=== PATIENT | female | born 1950 | race Two or more races ===

== ENCOUNTER 2017-01-08 15:34 | Inpatient (IN) | payer MEDICARE, MEDICAID ==
[~2017-01-08] VITALS: Ht 144.8 cm; Wt 89.6 kg
[2017-01-08 11:00] VITALS: BP 145/84
[~2017-01-08 15:34] MED LIST: ALOG25TA OR; ALPR-229 PO; DEXL60CA3 PO; ERGO1CAP6 PO; INSUINJ37 SUBCUT; LEVO150T10 PO; METO25TA3 PO; POLYSOL5 EACHEYE; TEMA30CA PO
[2017-01-08] MEDS ORDERED: SODIUM CHLORIDE 0.9% 1,000 ML IV ONE (20:00)
[2017-01-08 20:39] LABS: Basophils # (auto) 0 uL; Basophils % (auto) 0.4 % (0.0-2.0); Eosinophils # (auto) 0.1 uL; Eosinophils % (auto) 0.7 % (0.0-7.0); Hematocrit 35.3 % (36.0-46.0); Hemoglobin 11.2 g/dL (12.2-16.2); Lymphocytes # (auto) 2.1 uL; Lymphocytes % (auto) 23.3 % (10.0-50.0); Mean Corpuscular Hemoglobin 27.1 pg (28.0-32.0); Mean Corpuscular Hgb Conc. 31.8 g/dL (32.0-36.0); Mean Platelet Volume 8.1 fL (7.4-10.4); Monocytes # (auto) 0.4 uL; Monocytes % (auto) 4.9 % (0.0-12.0); Neutrophils # (auto) 6.3 uL; Neutrophils % (auto) 70.7 % (37.0-80.0); Platelet Count (auto) 344 10^3/uL (140-450); Red Cell Distribution Width 16.7 % (11.6-16.0); White Blood Cell 8.9 10^3/uL (4.4-10.8)
[2017-01-08 20:40] LABS: Urine Bilirubin Negative (Negative); Urine Blood Negative /uL (Negative); Urine Color Yellow (Yellow); Urine Glucose Normal (Normal); Urine Ketone Negative (Negative); Urine Nitrite POSITIVE (Negative); Urine RBC <1 /hpf (0 - 4); Urine Squamous Epithelial Cell FEW /hpf (<5); Urine Urobilinogen Normal (Negative); Urine pH 5.5 (5.0-8.0)
[2017-01-08 20:45] LABS: INR 0.94 (0.9-1.15); Partial Thromboplastin Time 18.3 sec (22.64-33.71); Prothrombin Time 10.1 sec (9.37-12.3)
[2017-01-08 20:56] LABS: Albumin 3.1 g/dL (3.4-5.0); Anion Gap 9 (5-15); Aspartate Aminotransferase 19 U/L (15-37); BUN/Creatinine Ratio 19.8; Blood Urea Nitrogen 17 mg/dL (7-18); Calcium 8.3 mg/dL (8.5-10.1); Carbon Dioxide 25 mmol/L (21-32); Chloride 111 mmol/L (98-107); GFR African American 85 mL/min; GFR Non-African American 70 mL/min; Glucose 99 mg/dL (74-106); Magnesium 2.1 mg/dL (1.6-2.6); Potassium 4.1 mmol/L (3.5-5.1); Sodium 145 mmol/L (136-145)
[2017-01-08 21:01] LABS: Alkaline Phosphatase 125 U/L (45-117); Bilirubin, Total 0.4 mg/dL (0.2-1.0); Total Protein 6.7 g/dL (6.4-8.2)
[2017-01-08] MEDS ORDERED: MORPHINE SULF INJ 2 MG/ML SYRINGE 1ML IV ONE (21:15)
[2017-01-08] MEDS ORDERED: ONDANSETRON HCL 4 MG/2 ML VIAL IV ONE (21:30)
[2017-01-08] MEDS ORDERED: TEMAZEPAM 15 MG CAP PO PRN (22:15)
[2017-01-08] MEDS ORDERED: DEXTROSE (50%) 50ML SYRG IV PRN (22:15)
[2017-01-08] MEDS ORDERED: ACETAMINOPHEN 325 MG TAB PO PRN (22:15)
[2017-01-08] MEDS ORDERED: HYDROcodone-ACET 5/325MG TAB PO PRN (22:15)
[2017-01-08] MEDS ORDERED: cefTRIAXone 1GM/50ML D5W 50 ML IV ONE (22:15)
[2017-01-08] MEDS: METOPROLOL TARTRATE 25 MG TAB PO SCH (22:21)
[2017-01-08] MEDS: SODIUM CHLORIDE 0.9% 1,000 ML IV SCH (22:22)
[2017-01-08] MEDS: FAMOTIDINE 20 MG TAB PO SCH (22:32)
[2017-01-08 23:00] VITALS: BP 145/84
[2017-01-09] MEDS: InsuLIN REG 1unit/0.01ml Soln (100units/ml) SC SCH ×4 (00:34→18:00)
[2017-01-09] MEDS: ONDANSETRON HCL 4 MG/2 ML VIAL IV PRN ×2 (01:34→06:38)
[2017-01-09] MEDS: MORPHINE SULF INJ 2 MG/ML SYRINGE 1ML IV PRN ×2 (01:35→06:38)
[2017-01-09 04:58] VITALS: BP 126/55
[2017-01-09] MEDS: ACCU-CHEK COMFORT CURVE STRIP VI SCH ×4 (06:00→18:05)
[2017-01-09 06:14] LABS: Basophils # (auto) 0 uL; Basophils % (auto) 0.4 % (0.0-2.0); DEFINITIVE VIEW TRANSMISSION; Eosinophils # (auto) 0.1 uL; Eosinophils % (auto) 1.2 % (0.0-7.0); Hematocrit 31.6 % (36.0-46.0); Hemoglobin 10.1 g/dL (12.2-16.2); Lymphocytes # (auto) 3.7 uL; Lymphocytes % (auto) 38.4 % (10.0-50.0); Mean Corpuscular Hemoglobin 26.3 pg (28.0-32.0); Mean Corpuscular Volume 82.2 fL (80.0-100.0); Monocytes # (auto) 0.8 uL; Monocytes % (auto) 8.1 % (0.0-12.0); Neutrophils % (auto) 51.9 % (37.0-80.0); Platelet Count (auto) 352 10^3/uL (140-450); Red Cell Distribution Width 16.2 % (11.6-16.0); White Blood Cell 9.6 10^3/uL (4.4-10.8)
[2017-01-09] MEDS: LEVOTHYROXINE SODIUM 50 MCG TAB PO SCH (06:39)
[2017-01-09 06:46] LABS: Albumin 2.8 g/dL (3.4-5.0); BUN/Creatinine Ratio 19.6; Bilirubin, Total 0.3 mg/dL (0.2-1.0); Calcium 8.4 mg/dL (8.5-10.1); Total Protein 6.1 g/dL (6.4-8.2)
[2017-01-09 09:00] VITALS: BP 105/42
[2017-01-09] MEDS: FAMOTIDINE 20 MG TAB PO SCH ×2 (10:00→22:46)
[2017-01-09] MEDS: METOPROLOL TARTRATE 25 MG TAB PO SCH ×2 (10:00→22:33)
[2017-01-09] MEDS ORDERED: TETRACAINE 1% INJ 2 ML VIAL IJ ONE ×2 (10:56→10:57)
[2017-01-09] MEDS ORDERED: fentaNYL CITRATE 100 MCG/2 ML VL ONE (11:00)
[2017-01-09] MEDS ORDERED: PROPOFOL 10 MG/ML 20 ML IV ONE (11:00)
[2017-01-09] MEDS: cefTRIAXone 1GM/50ML D5W 50 ML IV SCH (11:00)
[2017-01-09] MEDS ORDERED: MIDAZOLAM HCL 1MG/1ML-2 ML VIAL ONE ×3 (11:00→11:38)
[2017-01-09] MEDS ORDERED: METOCLOPRAMIDE HCL 5MG/ml INJ 2ml VIAL ONE (11:00)
[2017-01-09] MEDS ORDERED: ceFAZolin 1GM/50ML D5W 50 ML IV ONE (11:15)
[2017-01-09] MEDS ORDERED: ceFAZolin 1GM VL ONE (12:06)
[2017-01-09] MEDS: SODIUM CHLORIDE 0.9% 1,000 ML IV SCH (12:26)
[2017-01-09] MEDS ORDERED: BUPIVACAINE 0.75% INJ 10ML MPV SDV IJ ONE (13:02)
[2017-01-09] MEDS ORDERED: METOCLOPRAMIDE HCL 5MG/ml INJ 2ml VIAL IV ONE (13:30)
[2017-01-09] MEDS ORDERED: HYDROmorphone HCL 2 MG/ML VL IV PRN (13:30)
[2017-01-09] MEDS ORDERED: KETOROLAC TROMETH 30 MG/ML 1ML VIAL IV ONE (13:30)
[2017-01-09] MEDS ORDERED: ACCU-CHEK COMFORT CURVE STRIP VI ONE (13:30)
[2017-01-09] MEDS: IBUPROFEN 800 MG TAB PO PRN ×2 (15:25→23:36)
[2017-01-09 17:00] VITALS: BP 111/49
[2017-01-09 20:00] VITALS: BP 111/51
[2017-01-09 22:25] VITALS: BP 111/51
[2017-01-09] MEDS: ALPRAZolam 0.5 MG TAB PO SCH (22:33)
[2017-01-09] MEDS: INSULIN DETEMIR(LEVEMIR) 1unit/0.01ml Soln (100units/ml) SC SCH (22:45)
[2017-01-10] VITALS (7 sets, daily range): BP systolic 115–153; BP diastolic 48–79
[2017-01-10] MEDS: ACCU-CHEK COMFORT CURVE STRIP VI SCH ×5 (00:23→23:59)
[2017-01-10] MEDS: InsuLIN REG 1unit/0.01ml Soln (100units/ml) SC SCH ×5 (00:24→23:59)
[2017-01-10] MEDS: SODIUM CHLORIDE 0.9% 1,000 ML IV SCH ×2 (03:57→17:02)
[2017-01-10] MEDS: ONDANSETRON HCL 4 MG/2 ML VIAL IV PRN ×4 (03:58→20:09)
[2017-01-10] MEDS: MORPHINE SULF INJ 2 MG/ML SYRINGE 1ML IV PRN ×4 (03:58→20:10)
[2017-01-10 06:25] LABS: Basophils # (auto) 0.1 uL; Basophils % (auto) 0.4 % (0.0-2.0); DEFINITIVE VIEW TRANSMISSION; Eosinophils # (auto) 0 uL; Hematocrit 29.3 % (36.0-46.0); Hemoglobin 9.5 g/dL (12.2-16.2); Lymphocytes # (auto) 1.6 uL; Lymphocytes % (auto) 12.8 % (10.0-50.0); Mean Corpuscular Hemoglobin 26.7 pg (28.0-32.0); Mean Corpuscular Hgb Conc. 32.4 g/dL (32.0-36.0); Mean Corpuscular Volume 82.4 fL (80.0-100.0); Mean Platelet Volume 8.8 fL (7.4-10.4); Monocytes # (auto) 0.8 uL; Neutrophils # (auto) 10.2 uL; Neutrophils % (auto) 80.8 % (37.0-80.0); Platelet Count (auto) 306 10^3/uL (140-450); Red Cell Distribution Width 16.1 % (11.6-16.0); White Blood Cell 12.6 10^3/uL (4.4-10.8)
[2017-01-10] MEDS: LEVOTHYROXINE SODIUM 50 MCG TAB PO SCH (06:39)
[2017-01-10 06:42] LABS: Albumin 2.7 g/dL (3.4-5.0); Calcium 8.9 mg/dL (8.5-10.1)
[2017-01-10 06:45] LABS: BUN/Creatinine Ratio 16.8
[2017-01-10 06:47] LABS: Bilirubin, Total 0.3 mg/dL (0.2-1.0); Total Protein 6.1 g/dL (6.4-8.2)
[2017-01-10] MEDS: FAMOTIDINE 20 MG TAB PO SCH ×2 (10:26→21:43)
[2017-01-10] MEDS: ENOXAPARIN SOD 40 MG/0.4 ML SYRINGE SC SCH (10:27)
[2017-01-10] MEDS: METOPROLOL TARTRATE 25 MG TAB PO SCH ×2 (10:28→21:43)
[2017-01-10] MEDS: cefTRIAXone 1GM/50ML D5W 50 ML IV SCH (10:31)
[2017-01-10] MEDS: IBUPROFEN 800 MG TAB PO PRN (12:36)
[2017-01-10] MEDS: ALPRAZolam 0.5 MG TAB PO SCH (21:43)
[2017-01-10] MEDS: INSULIN DETEMIR(LEVEMIR) 1unit/0.01ml Soln (100units/ml) SC SCH (21:44)
[2017-01-11] MEDS: ONDANSETRON HCL 4 MG/2 ML VIAL IV PRN ×2 (02:35→08:39)
[2017-01-11] MEDS: MORPHINE SULF INJ 2 MG/ML SYRINGE 1ML IV PRN ×3 (02:36→10:06)
[2017-01-11 04:59] VITALS: BP 114/52
[2017-01-11] MEDS: ACCU-CHEK COMFORT CURVE STRIP VI SCH ×4 (05:29→23:45)
[2017-01-11] MEDS: InsuLIN REG 1unit/0.01ml Soln (100units/ml) SC SCH ×4 (05:30→23:45)
[2017-01-11] MEDS: LEVOTHYROXINE SODIUM 50 MCG TAB PO SCH (06:14)
[2017-01-11] MEDS: SODIUM CHLORIDE 0.9% 1,000 ML IV SCH ×2 (07:20→21:39)
[2017-01-11 08:40] VITALS: BP 118/53
[2017-01-11] MEDS ORDERED: diphenhdrAMINE HCL 50 MG/1 ML VL IV ONE ×2 (09:45→10:45)
[2017-01-11] MEDS ORDERED: diphenhdrAMINE HCL 50 MG/1 ML VL ONE (09:52)
[2017-01-11] MEDS: METOPROLOL TARTRATE 25 MG TAB PO SCH ×2 (10:00→21:38)
[2017-01-11] MEDS: FAMOTIDINE 20 MG TAB PO SCH ×2 (10:04→21:33)
[2017-01-11] MEDS: ENOXAPARIN SOD 40 MG/0.4 ML SYRINGE SC SCH (10:05)
[2017-01-11] MEDS: cefTRIAXone 1GM/50ML D5W 50 ML IV SCH (10:05)
[2017-01-11] MEDS ORDERED: diphenhdrAMINE HCL 50 MG/1 ML VL IV PRN (12:30)
[2017-01-11 14:17] VITALS: BP 122/53
[2017-01-11] MEDS ORDERED: IBUPROFEN 800 MG TAB PO PRN (14:18)
[2017-01-11] MEDS: HYDROmorphone HCL 2 MG/ML VL IV PRN ×2 (14:59→19:57)
[2017-01-11 16:29] VITALS: BP 128/74
[2017-01-11] MEDS: MEROPENEM 1GM IVPB 100 ML IV SCH ×2 (16:30→21:32)
[2017-01-11] MEDS: ALPRAZolam 0.5 MG TAB PO SCH (21:33)
[2017-01-11] MEDS: INSULIN DETEMIR(LEVEMIR) 1unit/0.01ml Soln (100units/ml) SC SCH (21:38)
[2017-01-11 21:49] VITALS: BP 101/57
[2017-01-12] MEDS: HYDROmorphone HCL 2 MG/ML VL IV PRN ×2 (02:13→06:13)
[2017-01-12 05:16] VITALS: BP 109/55
[2017-01-12] MEDS: ACCU-CHEK COMFORT CURVE STRIP VI SCH ×3 (05:37→17:50)
[2017-01-12] MEDS: InsuLIN REG 1unit/0.01ml Soln (100units/ml) SC SCH ×3 (06:00→17:50)
[2017-01-12] MEDS: LEVOTHYROXINE SODIUM 50 MCG TAB PO SCH (06:13)
[2017-01-12 07:01] LABS: BUN/Creatinine Ratio 25.3; Calcium 8.1 mg/dL (8.5-10.1); Potassium 3.8 mmol/L (3.5-5.1)
[2017-01-12 09:00] VITALS: BP 101/45
[2017-01-12] MEDS: MEROPENEM 1GM IVPB 100 ML IV SCH (10:00)
[2017-01-12] MEDS: METOPROLOL TARTRATE 25 MG TAB PO SCH (10:00)
[2017-01-12] MEDS: ENOXAPARIN SOD 40 MG/0.4 ML SYRINGE SC SCH (10:00)
[2017-01-12] MEDS: FAMOTIDINE 20 MG TAB PO SCH (10:02)
[2017-01-12] MEDS: SODIUM CHLORIDE 0.9% 1,000 ML IV SCH (11:13)
[2017-01-12] MEDS ORDERED: HYDROcodone-ACET 7.5/325MG TAB PO PRN (11:15)
[2017-01-12] MEDS ORDERED: DOCUSATE SOD 100 MG CAP PO ONE (11:15)
[2017-01-12 11:26] LABS: Basophils # (auto) 0 uL; Basophils % (auto) 0.3 % (0.0-2.0); DEFINITIVE VIEW TRANSMISSION; Eosinophils # (auto) 0.1 uL; Hematocrit 29.9 % (36.0-46.0); Hemoglobin 9.6 g/dL (12.2-16.2); Lymphocytes # (auto) 3.8 uL; Lymphocytes % (auto) 32.9 % (10.0-50.0); Mean Corpuscular Hemoglobin 26.5 pg (28.0-32.0); Mean Corpuscular Hgb Conc. 32.1 g/dL (32.0-36.0); Mean Corpuscular Volume 82.5 fL (80.0-100.0); Mean Platelet Volume 9.1 fL (7.4-10.4); Monocytes # (auto) 1.1 uL; Monocytes % (auto) 9.4 % (0.0-12.0); Neutrophils # (auto) 6.6 uL; Neutrophils % (auto) 56.4 % (37.0-80.0); Platelet Count (auto) 339 10^3/uL (140-450); White Blood Cell 11.7 10^3/uL (4.4-10.8)
[2017-01-12] MEDS ORDERED: HYDROmorphone HCL 2 MG/ML VL IV PRN (11:45)
[2017-01-12 13:00] VITALS: BP 109/51
[2017-01-12] MEDS ORDERED: HYDROcodone-ACET 10/325MG TAB PO PRN (16:00)
[2017-01-12 16:21] VITALS: BP 110/52
[2017-01-12 17:00] VITALS: BP 119/62
[2017-01-12] MEDS ORDERED: DOCUSATE SOD 100 MG CAP PO SCH (22:00)
== END 2017-01-12 17:20 | disposition home or self-care (01) | DRG 463 ==
LOC: EDUNIT# 15:34 → EDBD 15:34 → ER 15:36 → OVERFLOW 15:37 → WEST WING 22:57
PROVIDERS: ADMIT Internal Medicine; ATTEND Family Medicine
PROC: 0HRKXK3 Replacement of Right Lower Leg Skin with Nonautologous Tissue Substitute, Full Thickness, External Approach (ICD-10-PCS; 2017-01-09)
PROC: 0QSJ04Z Reposition Right Fibula with Internal Fixation Device, Open Approach (ICD-10-PCS; 2017-01-09)
PROC: 0QSG04Z Reposition Right Tibia with Internal Fixation Device, Open Approach (ICD-10-PCS; principal; 2017-01-09 11:27)
DX: S82.841A Displaced bimalleolar fracture of right lower leg, initial encounter for closed fracture (principal); N17.0 Acute kidney failure with tubular necrosis; N39.0 Urinary tract infection, site not specified; Z68.41 Body mass index [BMI] 40.0-44.9, adult; K21.9 Gastro-esophageal reflux disease without esophagitis; F41.9 Anxiety disorder, unspecified; E66.01 Morbid (severe) obesity due to excess calories; E11.65 Type 2 diabetes mellitus with hyperglycemia; B95.62 Methicillin resistant Staphylococcus aureus infection as the cause of diseases classified elsewhere; I10 Essential (primary) hypertension; M19.90 Unspecified osteoarthritis, unspecified site; W19.XXXA Unspecified fall, initial encounter; Z82.49 Family history of ischemic heart disease and other diseases of the circulatory system; Y93.89 Activity, other specified; Y92.89 Other specified places as the place of occurrence of the external cause; Z88.8 Allergy status to other drugs, medicaments and biological substances
CPT/HCPCS: 29515; 36415; 51702; 71010; 73562; 73600; 73610; 76001; 80048; 80053; 81001; 82962; 83036; 83735; 84484; 84702; 85025; 85610; 85730; 87086; 87088; 87186; 93005; 94761; 96365; 96375; 97001; J0690; J0696; J1815; J2185; J2250; J2405; J2704; J3490

== ENCOUNTER 2018-10-21 17:37 | Emergency (ER) | payer MEDICARE, MEDICAID ==
[~2018-10-21] VITALS: Ht 144.8 cm; Wt 68.0 kg
[~2018-10-21 17:37] MED LIST changes: -METO25TA3 PO; +METO25TA4 PO
[2018-10-21 20:28] LABS: Basophils # (auto) 0.1 uL; Basophils % (auto) 0.7 % (0.0-2.0); Eosinophils # (auto) 0.2 uL; Eosinophils % (auto) 1.9 % (0.0-7.0); Hematocrit 33.8 % (36.0-46.0); Hemoglobin 10.9 g/dL (12.2-16.2); Lymphocytes # (auto) 2.8 uL; Lymphocytes % (auto) 27.1 % (10.0-50.0); Mean Corpuscular Hemoglobin 25.6 pg (28.0-32.0); Mean Corpuscular Hgb Conc. 32.2 g/dL (32.0-36.0); Mean Corpuscular Volume 79.6 fL (80.0-100.0); Monocytes # (auto) 0.6 uL; Monocytes % (auto) 5.5 % (0.0-12.0); Neutrophils # (auto) 6.6 uL; Neutrophils % (auto) 64.8 % (37.0-80.0); Nucleated Red Blood Cells % 0.1 %; Platelet Count (auto) 306 10^3/uL (140-450); Red Blood Cells 4.24 10^6/uL (4.0-5.20); Red Cell Distribution Width 16.7 % (11.8-14.3); White Blood Cell 10.2 10^3/uL (4.4-10.8)
[2018-10-21 20:41] LABS: INR 0.97 (0.9-1.15); Partial Thromboplastin Time 28.6 sec (23.78-33.04); Prothrombin Time 10.4 sec (9.27-12.13)
[2018-10-21 20:45] LABS: Alanine Aminotransferase 19 U/L (13-56); Albumin 3.4 g/dL (3.4-5.0); Anion Gap 8 (5-15); Aspartate Aminotransferase 18 U/L (15-37); Blood Urea Nitrogen 20 mg/dL (7-18); Calcium 8.3 mg/dL (8.5-10.1); Carbon Dioxide 24 mmol/L (21-32); Chloride 107 mmol/L (98-107); Glucose 102 mg/dL (74-106); Potassium 3.8 mmol/L (3.5-5.1); Sodium 139 mmol/L (136-145)
[2018-10-21 20:49] LABS: Alkaline Phosphatase 152 U/L (45-117); BUN/Creatinine Ratio 18.2; Bilirubin, Total 0.2 mg/dL (0.2-1.0); GFR African American 63 mL/min; GFR Non-African American 52 mL/min; Total Protein 7.1 g/dL (6.4-8.2)
[2018-10-21 23:05] VITALS: BP 107/47
== END 2018-10-21 23:10 | disposition home or self-care (01) ==
LOC: ER 17:37
DX: E11.649 Type 2 diabetes mellitus with hypoglycemia without coma (principal); I10 Essential (primary) hypertension; E86.0 Dehydration; N28.9 Disorder of kidney and ureter, unspecified; E03.9 Hypothyroidism, unspecified; Z88.8 Allergy status to other drugs, medicaments and biological substances; Z79.4 Long term (current) use of insulin; Z79.899 Other long term (current) drug therapy
CPT/HCPCS: 36415; 71046; 80053; 82962; 83880; 84443; 84484; 85025; 85379; 85610; 85730; 93005

== ENCOUNTER 2021-10-13 09:38 | Inpatient (IN) | payer OTHER, MEDICAID ==
[~2021-10-13] VITALS: Ht 144.8 cm; Wt 73.3 kg
[~2021-10-13 09:38] MED LIST changes: -ALPR-229 PO; +ALPR2TAB6 PO; -DEXL60CA3 PO; +DEXL60CA4 PO; +METO25TA36 PO; -METO25TA4 PO; +POLYSOL2 EACHEYE; -POLYSOL5 EACHEYE
[2021-10-13] MEDS ORDERED: SODIUM CHLORIDE 0.9% 1,000 ML IV ONE ×2 (10:45)
[2021-10-13] MEDS ORDERED: metroNIDAZOLE 500MG/100ML 100 ML IV ONE ×2 (11:30→18:00)
[2021-10-13] MEDS ORDERED: cefTRIAXone 1GM/50ML D5W 50 ML IV ONE (11:30)
[2021-10-13 11:45] LABS: Basophils # (auto) 0.1 10 ^3/uL (0-0.2); Basophils % (auto) 0.6 % (0.0-2.0); Eosinophils # (auto) 0 10 ^3/uL (0-0.8); Eosinophils % (auto) 0.1 % (0.0-7.0); Hematocrit 41.6 % (36.0-46.0); Hemoglobin 14.1 g/dL (12.2-16.2); Lymphocytes # (auto) 2.3 10 ^3/uL (0.4-5.4); Lymphocytes % (auto) 14.4 % (10.0-50.0); Mean Corpuscular Hemoglobin 29.6 pg (28.0-32.0); Mean Corpuscular Hgb Conc. 33.9 g/dL (32.0-36.0); Mean Corpuscular Volume 87.2 fL (80.0-100.0); Monocytes # (auto) 1.3 10 ^3/uL (0-1.3); Neutrophils # (auto) 12.1 10 ^3/uL (1.6-8.6); Neutrophils % (auto) 76.9 % (37.0-80.0); Red Blood Cells 4.77 10^6/uL (4.0-5.20); Red Cell Distribution Width 14.3 % (11.8-14.3); White Blood Cell 15.8 10^3/uL (4.4-10.8)
[2021-10-13 12:08] LABS: Albumin 3.6 g/dL (3.4-5.0); Calcium 9.8 mg/dL (8.5-10.1); Potassium 3.9 mmol/L (3.5-5.1)
[2021-10-13 12:14] LABS: BUN/Creatinine Ratio 24.5; Bilirubin, Total 0.6 mg/dL (0.2-1.0); Total Protein 8.1 g/dL (6.4-8.2)
[2021-10-13] MEDS ORDERED: MORPHINE SULFATE 4 MG/ML SYR/VIAL IV ONE (12:45)
[2021-10-13] MEDS ORDERED: MORPHINE SULFATE INJECTION 2 MG/ML SYRG IV PRN ×2 (13:00→18:00)
[2021-10-13] MEDS ORDERED: NITROGLYCERIN 0.4 MG SL TAB SL PRN ×2 (13:00→18:00)
[2021-10-13] MEDS ORDERED: DEXTROSE (50%) 50ML SYRG IV PRN ×2 (13:00→18:00)
[2021-10-13] MEDS ORDERED: D5W/SOD CHLO 0.9% 1,000 ML IV SCH (13:00)
[2021-10-13] MEDS ORDERED: GASTROGRAFIN 120 ML SOL ONE (13:13)
[2021-10-13] MEDS ORDERED: KETOROLAC TROMETH 30 MG/ML 1ML VIAL IV ONE (17:00)
[2021-10-13] MEDS ORDERED: CITA-77 PO (17:33)
[2021-10-13] MEDS ORDERED: INSLANTI SC (17:33)
[2021-10-13] MEDS ORDERED: FERR-20 PO (17:33)
[2021-10-13] MEDS ORDERED: DULO20CA36 PO (17:37)
[2021-10-13] MEDS ORDERED: HYDROcodone-ACET 5/325MG TAB PO PRN (18:00)
[2021-10-13] MEDS ORDERED: METOCLOPRAMIDE HCL 5MG/ml INJ 2ml VIAL IV PRN (18:00)
[2021-10-13] MEDS ORDERED: DOCUSATE SOD 100 MG CAP PO PRN (18:00)
[2021-10-13] MEDS ORDERED: PANTOPRAZOLE 40 MG/10 ML VIAL INJ IV ONE (18:00)
[2021-10-13] MEDS ORDERED: InsuLIN REG 1unit/0.01ml Soln (100units/ml) SC SCH (18:00)
[2021-10-13] MEDS ORDERED: METOPROLOL SUCCINATE XL 50 MG TAB PO ONE (18:00)
[2021-10-13] MEDS ORDERED: ALUM & MAG HYDROX-SIMETH LIQ(MAALOX) 30 ML PO PRN (18:00)
[2021-10-13] MEDS ORDERED: ACCU-CHEK COMFORT CURVE STRIP VI SCH (18:00)
[2021-10-13] MEDS ORDERED: LACTATED RINGER'S 1,000 ML IV ONE (18:00)
[2021-10-13] MEDS ORDERED: HYDROmorphone HCL 2 MG/ML VL IV PRN (18:00)
[2021-10-13 18:24] VITALS: BP 122/54
[2021-10-13 18:53] LABS: Cholesterol 195 mg/dL (< 200); Triglycerides 432 mg/dL (< 150)
[2021-10-13 18:55] LABS: HDL Cholesterol 45 mg/dL (40-59)
[2021-10-13 20:00] VITALS: BP 110/41
[2021-10-13] MEDS ORDERED: levoFLOXacin 250MG 50 ML IV ONE (20:00)
[2021-10-13 20:23] LABS: Urine Bacteria MANY /hpf (None Seen); Urine Blood Negative /uL (Negative); Urine Mucus MANY (None Seen); Urine Specific Gravity 1.018 (1.001-1.035); Urine WBC 26 /hpf (0 - 5)
[2021-10-13 20:45] LABS: Amphetamine Screen, Urine NEGATIVE (NEGATIVE); Barbiturate Scree,Urine NEGATIVE (NEGATIVE); Benzodiazephine Screen, Urine NEGATIVE (NEGATIVE); Cannabinoid Screen, Urine NEGATIVE (NEGATIVE); Cocaine Screen, Urine NEGATIVE (NEGATIVE); Opiate Scree,Urine POSITIVE (NEGATIVE); Phencyclidine Screen, Urine NEGATIVE (NEGATIVE)
[2021-10-13] MEDS: D5W/SOD CHLO 0.9% 1,000 ML IV SCH (23:31)
[2021-10-13] MEDS: metroNIDAZOLE 500MG/100ML 100 ML IV SCH (23:32)
[2021-10-13] MEDS: ACCU-CHEK COMFORT CURVE STRIP VI SCH (23:33)
[2021-10-13] MEDS: ATORVASTATIN 20 MG TAB PO SCH (23:33)
[2021-10-13] MEDS: DULoxetine HCL 30 MG CAP PO SCH (23:33)
[2021-10-13] MEDS: InsuLIN REG 1unit/0.01ml Soln (100units/ml) SC SCH (23:36)
[2021-10-14] MEDS: LORazepam 0.5 MG TAB PO PRN ×2 (02:04→21:51)
[2021-10-14 05:00] VITALS: BP 99/61
[2021-10-14] MEDS: LEVOTHYROXINE SODIUM 50 MCG TAB PO SCH (05:52)
[2021-10-14] MEDS: metroNIDAZOLE 500MG/100ML 100 ML IV SCH ×3 (05:52→21:50)
[2021-10-14] MEDS: InsuLIN REG 1unit/0.01ml Soln (100units/ml) SC SCH ×4 (06:05→21:56)
[2021-10-14] MEDS: ACCU-CHEK COMFORT CURVE STRIP VI SCH ×4 (06:05→21:51)
[2021-10-14 06:56] LABS: Basophils # (auto) 0.1 10 ^3/uL (0-0.2); Eosinophils # (auto) 0.3 10 ^3/uL (0-0.8); Eosinophils % (auto) 2.4 % (0.0-7.0); Hematocrit 34.6 % (36.0-46.0); Hemoglobin 11.5 g/dL (12.2-16.2); Lymphocytes # (auto) 3.1 10 ^3/uL (0.4-5.4); Lymphocytes % (auto) 27.6 % (10.0-50.0); Mean Corpuscular Hemoglobin 29.3 pg (28.0-32.0); Mean Corpuscular Hgb Conc. 33.1 g/dL (32.0-36.0); Mean Corpuscular Volume 88.4 fL (80.0-100.0); Monocytes # (auto) 0.8 10 ^3/uL (0-1.3); Monocytes % (auto) 7.2 % (0.0-12.0); Neutrophils # (auto) 6.9 10 ^3/uL (1.6-8.6); Neutrophils % (auto) 61.8 % (37.0-80.0); Nucleated Red Blood Cells % 0.2 %; Red Blood Cells 3.92 10^6/uL (4.0-5.20); Red Cell Distribution Width 14.2 % (11.8-14.3); White Blood Cell 11.2 10^3/uL (4.4-10.8)
[2021-10-14 06:57] LABS: INR 1.01 (0.9-1.15); Partial Thromboplastin Time 21.5 sec (23.6-33.0)
[2021-10-14 07:01] LABS: Albumin 2.6 g/dL (3.4-5.0); Calcium 8.1 mg/dL (8.5-10.1); Magnesium 3.7 mg/dL (1.6-2.6); Potassium 3.4 mmol/L (3.5-5.1)
[2021-10-14 07:07] LABS: BUN/Creatinine Ratio 36.6; Bilirubin, Total 0.6 mg/dL (0.2-1.0); Phosphorus 4.5 mg/dL (2.5-4.90); Total Protein 5.8 g/dL (6.4-8.2)
[2021-10-14] MEDS: D5W/SOD CHLO 0.9% 1,000 ML IV SCH ×2 (07:20→20:40)
[2021-10-14 09:00] VITALS: BP 111/65
[2021-10-14] MEDS: ASPirin 81 mg TAB PO SCH (09:42)
[2021-10-14] MEDS: PANTOPRAZOLE 40 MG/10 ML VIAL INJ IV SCH (09:42)
[2021-10-14] MEDS: METOPROLOL SUCCINATE XL 50 MG TAB PO SCH (09:42)
[2021-10-14] MEDS: DULoxetine HCL 30 MG CAP PO SCH ×2 (09:42→21:51)
[2021-10-14] MEDS: ENOXAPARIN SOD 30 MG/0.3 ML SYRINGE SC SCH (09:43)
[2021-10-14] MEDS: CHOLECALCIFEROL (VITD3) 2,000 UNIT CAP/TAB PO SCH (09:43)
[2021-10-14 13:00] VITALS: BP 112/60
[2021-10-14 17:00] VITALS: BP 118/58
[2021-10-14] MEDS ORDERED: levoFLOXacin 250MG 50 ML IV SCH (21:00)
[2021-10-14] MEDS: ATORVASTATIN 20 MG TAB PO SCH (21:51)
[2021-10-14 22:00] VITALS: BP 121/61
[2021-10-15 04:17] VITALS: BP 120/65
[2021-10-15] MEDS: metroNIDAZOLE 500MG/100ML 100 ML IV SCH ×2 (05:08→15:37)
[2021-10-15] MEDS: LEVOTHYROXINE SODIUM 50 MCG TAB PO SCH (05:09)
[2021-10-15] MEDS: ACCU-CHEK COMFORT CURVE STRIP VI SCH ×2 (06:10→11:59)
[2021-10-15] MEDS: InsuLIN REG 1unit/0.01ml Soln (100units/ml) SC SCH ×2 (06:10→11:30)
[2021-10-15 07:43] LABS: Potassium 3.1 mmol/L (3.5-5.1)
[2021-10-15 07:51] LABS: BUN/Creatinine Ratio 30.8; Calcium 8.2 mg/dL (8.5-10.1)
[2021-10-15 09:00] VITALS: BP 124/59
[2021-10-15] MEDS ORDERED: POTASSIUM CHL 10MEQ/50ML 50 ML IV SCH (09:00)
[2021-10-15] MEDS: PANTOPRAZOLE 40 MG/10 ML VIAL INJ IV SCH (09:36)
[2021-10-15] MEDS: DULoxetine HCL 30 MG CAP PO SCH (09:37)
[2021-10-15] MEDS: ASPirin 81 mg TAB PO SCH (09:37)
[2021-10-15] MEDS: CHOLECALCIFEROL (VITD3) 2,000 UNIT CAP/TAB PO SCH (09:39)
[2021-10-15] MEDS: METOPROLOL SUCCINATE XL 50 MG TAB PO SCH (09:39)
[2021-10-15] MEDS: ENOXAPARIN SOD 30 MG/0.3 ML SYRINGE SC SCH (09:40)
[2021-10-15] MEDS: D5W/SOD CHLO 0.9% 1,000 ML IV SCH (10:00)
[2021-10-15] MEDS ORDERED: METR500T PO (11:03)
[2021-10-15] MEDS ORDERED: LEVO500T31 PO (11:03)
[2021-10-15] MEDS ORDERED: POTASSIUM CHL 20 Meq TABLET PO ONE (11:15)
[2021-10-15 13:00] VITALS: BP 125/82
[2021-10-15 14:06] VITALS: BP 125/82
[2021-10-15 17:00] VITALS: BP 150/71
== END 2021-10-15 17:57 | disposition home or self-care (01) | DRG 871 ==
LOC: ER 09:38 → TELE 13:00 → TELE-WESTW 17:16
PROVIDERS: ADMIT Hospitalist; ATTEND Family Medicine
PROC: 0D9670Z Drainage of Stomach with Drainage Device, Via Natural or Artificial Opening (ICD-10-PCS; principal; 2021-10-13)
DX: A41.9 Sepsis, unspecified organism (principal); N17.0 Acute kidney failure with tubular necrosis; K56.600 Partial intestinal obstruction, unspecified as to cause; E87.1 Hypo-osmolality and hyponatremia; N30.00 Acute cystitis without hematuria; N18.4 Chronic kidney disease, stage 4 (severe); N17.9 Acute kidney failure, unspecified; E11.65 Type 2 diabetes mellitus with hyperglycemia; F32.9 Major depressive disorder, single episode, unspecified; F41.9 Anxiety disorder, unspecified; K21.9 Gastro-esophageal reflux disease without esophagitis; Z20.822 Contact with and (suspected) exposure to COVID-19; E03.9 Hypothyroidism, unspecified; E11.22 Type 2 diabetes mellitus with diabetic chronic kidney disease; E11.40 Type 2 diabetes mellitus with diabetic neuropathy, unspecified; E66.01 Morbid (severe) obesity due to excess calories; E78.5 Hyperlipidemia, unspecified; I12.9 Hypertensive chronic kidney disease with stage 1 through stage 4 chronic kidney disease, or unspecified chronic kidney disease; Z79.4 Long term (current) use of insulin; Z68.34 Body mass index [BMI] 34.0-34.9, adult; Z82.49 Family history of ischemic heart disease and other diseases of the circulatory system; Z90.49 Acquired absence of other specified parts of digestive tract; Z79.899 Other long term (current) drug therapy; Z88.8 Allergy status to other drugs, medicaments and biological substances; Z91.041 Radiographic dye allergy status
CPT/HCPCS: 36415; 71045; 74018; 74176; 80048; 80053; 80061; 80307; 81001; 82962; 83036; 83605; 83735; 83880; 84100; 84443; 84484; 85025; 85379; 85610; 85730; 87040; 87086; 87426; 93005; 96361; 96365; C9113; G0378; J0696; J1815; J1885; J3490; J7042

== ENCOUNTER 2022-05-14 17:41 | Emergency (ER) | payer OTHER, MEDICAID ==
[~2022-05-14] VITALS: Ht 144.8 cm; Wt 75.0 kg
[~2022-05-14 17:41] MED LIST changes: +CITA-77 PO; +DULO20CA36 PO; +FERR-20 PO; +INSLANTI SC; +LEVO500T31 PO; +METR500T PO
[2022-05-14] MEDS ORDERED: IOHEXOL 300 MG/ML 100ML BOTTLE IJ ONE (20:01)
[2022-05-14 20:23] LABS: Basophils # (auto) 0.1 10 ^3/uL (0-0.2); Basophils % (auto) 1.2 % (0.0-2.0); Eosinophils # (auto) 0.1 10 ^3/uL (0-0.8); Eosinophils % (auto) 1.5 % (0.0-7.0); Hematocrit 35.2 % (36.0-46.0); Hemoglobin 11.5 g/dL (12.2-16.2); Lymphocytes # (auto) 3.4 10 ^3/uL (0.4-5.4); Lymphocytes % (auto) 34.3 % (10.0-50.0); Mean Corpuscular Hemoglobin 28.8 pg (28.0-32.0); Mean Corpuscular Hgb Conc. 32.7 g/dL (32.0-36.0); Mean Corpuscular Volume 88.2 fL (80.0-100.0); Monocytes # (auto) 0.7 10 ^3/uL (0-1.3); Monocytes % (auto) 7.1 % (0.0-12.0); Neutrophils # (auto) 5.6 10 ^3/uL (1.6-8.6); Neutrophils % (auto) 55.9 % (37.0-80.0); Nucleated Red Blood Cells % 0.1 %; Red Blood Cells 3.99 10^6/uL (4.0-5.20); Red Cell Distribution Width 14.5 % (11.8-14.3); White Blood Cell 9.9 10^3/uL (4.4-10.8)
[2022-05-14 20:40] LABS: Albumin 3.3 g/dL (3.4-5.0); BUN/Creatinine Ratio 17.7; Calcium 8.5 mg/dL (8.5-10.1); Potassium 4.2 mmol/L (3.5-5.1)
[2022-05-14 20:43] LABS: Bilirubin, Total 0.3 mg/dL (0.2-1.0); Total Protein 6.3 g/dL (6.4-8.2)
[2022-05-14] MEDS ORDERED: FAMOTIDINE (10MG/ML) 2ML VL IV ONE (21:30)
[2022-05-14] MEDS ORDERED: diphenhdrAMINE HCL 50 MG/1 ML VL IV ONE (21:30)
[2022-05-14] MEDS ORDERED: DexAMETHasone SOD PHOS 10MG/1ML VIAL INJ IV ONE (21:30)
[2022-05-15] MEDS ORDERED: diphenhdrAMINE HCL 50 MG/1 ML VL IV ONE (05:15)
[2022-05-15] MEDS ORDERED: LORazepam 2MG/ML-1ML VIAL IV ONE (10:30)
[2022-05-15 13:32] LABS: Urine Bacteria NONE SEEN /hpf (None Seen); Urine Blood Negative /uL (Negative); Urine Mucus FEW (None Seen); Urine Specific Gravity 1.044 (1.001-1.035); Urine WBC 2 /hpf (0 - 5)
[2022-05-15 17:45] VITALS: BP 138/72
== END 2022-05-15 18:34 | disposition home or self-care (01) ==
LOC: ER 17:41
DX: K11.8 Other diseases of salivary glands (principal); I10 Essential (primary) hypertension; E11.9 Type 2 diabetes mellitus without complications; E03.9 Hypothyroidism, unspecified; Z79.4 Long term (current) use of insulin; Z79.899 Other long term (current) drug therapy; Z88.8 Allergy status to other drugs, medicaments and biological substances; Z20.822 Contact with and (suspected) exposure to COVID-19
CPT/HCPCS: 36415; 70486; 70487; 80053; 81001; 85025; 87426; 96374; 96375; 99285; J1100; J1200; J2060; J3490; Q9967

== ENCOUNTER 2022-08-14 03:43 | Inpatient (IN) | payer OTHER, MEDICAID ==
[~2022-08-14] VITALS: Ht 139.7 cm; Wt 63.4 kg
[2022-08-14] MEDS ORDERED: ALBUTEROL SULF 2.5 MG/0.5ML(0.5%) NEB SOLN NEB ONE ×2 (04:00→17:45)
[2022-08-14] MEDS ORDERED: IPRATROPIUM BROM 0.5 MG/2.5ML INH SOL NEB ONE (04:00)
[2022-08-14 04:35] LABS: Basophils # (auto) 0.1 10 ^3/uL (0-0.2); Basophils % (auto) 0.7 % (0.0-2.0); Eosinophils # (auto) 0.1 10 ^3/uL (0-0.8); Eosinophils % (auto) 1.4 % (0.0-7.0); Hematocrit 40.1 % (36.0-46.0); Lymphocytes # (auto) 4.6 10 ^3/uL (0.4-5.4); Lymphocytes % (auto) 45.7 % (10.0-50.0); Mean Corpuscular Hemoglobin 28.4 pg (28.0-32.0); Mean Corpuscular Hgb Conc. 32.4 g/dL (32.0-36.0); Mean Corpuscular Volume 87.4 fL (80.0-100.0); Monocytes # (auto) 0.6 10 ^3/uL (0-1.3); Monocytes % (auto) 6.3 % (0.0-12.0); Neutrophils # (auto) 4.6 10 ^3/uL (1.6-8.6); Neutrophils % (auto) 45.9 % (37.0-80.0); Nucleated Red Blood Cells % 0.1 %; Red Blood Cells 4.58 10^6/uL (4.0-5.20); Red Cell Distribution Width 14.4 % (11.8-14.3); White Blood Cell 10.1 10^3/uL (4.4-10.8)
[2022-08-14 04:50] LABS: Albumin 3.4 g/dL (3.4-5.0); Calcium 8.7 mg/dL (8.5-10.1); Potassium 3.3 mmol/L (3.5-5.1)
[2022-08-14 04:54] LABS: BUN/Creatinine Ratio 17.3; Bilirubin, Total 0.4 mg/dL (0.2-1.0); Total Protein 7.5 g/dL (6.4-8.2)
[2022-08-14] MEDS ORDERED: DexAMETHasone SOD PHOS 10MG/1ML VIAL INJ IV ONE (07:00)
[2022-08-14] MEDS ORDERED: MAGNESIUM SULFATE 1GM/100ML 100 ML IV ONE ×2 (07:30→07:40)
[2022-08-14] MEDS ORDERED: ONDANSETRON HCL 4 MG/2 ML VIAL IV PRN (18:45)
[2022-08-14] MEDS ORDERED: DEXTROSE (50%) 50ML SYRG IV PRN (18:45)
[2022-08-14] MEDS ORDERED: MORPHINE SULFATE INJ 2 MG/ml SYRG IV PRN (18:45)
[2022-08-14] MEDS ORDERED: POTASSIUM EFFERVESENT TAB 25 MEQ PO ONE (18:45)
[2022-08-14] MEDS ORDERED: ERGOCALCIFEROL 50,000 UNIT(1.25MG) CAP PO SCH (19:00)
[2022-08-14] MEDS ORDERED: IPRATROPIUM BROM 0.5 MG/2.5ML INH SOL NEB PRN (19:00)
[2022-08-14] MEDS ORDERED: ALBUTEROL SULF 2.5 MG/0.5ML(0.5%) NEB SOLN NEB PRN (19:00)
[2022-08-14 20:08] VITALS: BP 83/56
[2022-08-14] MEDS: POLYETHYLENE GLYCOL PROPYLENE EACHEYE SCH (22:00)
[2022-08-14] MEDS: methylPREDNISolone SOD SUCC 125 MG/2 ML VL IV SCH (23:10)
[2022-08-14] MEDS: METOPROLOL TARTRATE 25 MG TAB PO SCH (23:12)
[2022-08-14] MEDS: ACCU-CHEK COMFORT CURVE STRIP VI SCH (23:13)
[2022-08-14] MEDS: InsuLIN REG 1unit/0.01ml Soln (100units/ml) SC SCH (23:40)
[2022-08-15 03:43] LABS: Basophils # (auto) 0.1 10 ^3/uL (0-0.2); Basophils % (auto) 0.7 % (0.0-2.0); Eosinophils # (auto) 0 10 ^3/uL (0-0.8); Hematocrit 37.6 % (36.0-46.0); Hemoglobin 12.3 g/dL (12.2-16.2); Lymphocytes # (auto) 1.9 10 ^3/uL (0.4-5.4); Lymphocytes % (auto) 19.7 % (10.0-50.0); Mean Corpuscular Hemoglobin 28.5 pg (28.0-32.0); Mean Corpuscular Hgb Conc. 32.8 g/dL (32.0-36.0); Mean Corpuscular Volume 86.7 fL (80.0-100.0); Monocytes # (auto) 0.1 10 ^3/uL (0-1.3); Monocytes % (auto) 0.8 % (0.0-12.0); Neutrophils # (auto) 7.5 10 ^3/uL (1.6-8.6); Neutrophils % (auto) 78.8 % (37.0-80.0); Red Blood Cells 4.34 10^6/uL (4.0-5.20); Red Cell Distribution Width 14.2 % (11.8-14.3); White Blood Cell 9.5 10^3/uL (4.4-10.8)
[2022-08-15 03:58] LABS: Albumin 3.5 g/dL (3.4-5.0); BUN/Creatinine Ratio 17.1; Calcium 9.4 mg/dL (8.5-10.1); Potassium 4.9 mmol/L (3.5-5.1)
[2022-08-15 04:01] LABS: Bilirubin, Total 0.6 mg/dL (0.2-1.0); Total Protein 7.6 g/dL (6.4-8.2)
[2022-08-15] MEDS ORDERED: INSULIN LANTUS (GLARGINE) 1 /0.01ml (100units/ml) SC ONE (04:30)
[2022-08-15] MEDS: methylPREDNISolone SOD SUCC 125 MG/2 ML VL IV SCH ×3 (05:58→23:29)
[2022-08-15] MEDS: POLYETHYLENE GLYCOL PROPYLENE EACHEYE SCH ×4 (06:00→23:29)
[2022-08-15] MEDS: LEVOTHYROXINE SODIUM 50 MCG TAB PO SCH (07:18)
[2022-08-15] MEDS: InsuLIN REG 1unit/0.01ml Soln (100units/ml) SC SCH ×4 (07:20→23:25)
[2022-08-15] MEDS: ACCU-CHEK COMFORT CURVE STRIP VI SCH ×4 (07:27→22:00)
[2022-08-15] MEDS ORDERED: CITALOPRAM HYDROBR 20 MG TAB PO SCH (10:00)
[2022-08-15] MEDS: ENOXAPARIN SOD 40 MG/0.4 ML SYRINGE SC SCH (11:02)
[2022-08-15] MEDS: ASPirin 81 mg TAB PO SCH (11:03)
[2022-08-15] MEDS: FUROSEMIDE 20 MG/2 ML VIAL IV SCH (11:03)
[2022-08-15] MEDS: PANTOPRAZOLE 40 MG TAB PO SCH (11:03)
[2022-08-15] MEDS: METOPROLOL TARTRATE 25 MG TAB PO SCH ×2 (11:03→23:30)
[2022-08-15 12:43] LABS: Urine Bacteria FEW /hpf (None Seen); Urine Blood Negative /uL (Negative); Urine Specific Gravity 1.004 (1.001-1.035); Urine WBC 1 /hpf (0 - 5)
[2022-08-15] MEDS ORDERED: TRAM50TA2 PO (16:21)
[2022-08-15] MEDS ORDERED: SERT50TA PO (16:23)
[2022-08-15] MEDS ORDERED: traMADol HCL 50 MG TAB PO PRN (16:30)
[2022-08-15] MEDS ORDERED: DULO20CA PO (18:03)
[2022-08-15 22:00] VITALS: BP 109/67
[2022-08-15] MEDS ORDERED: INSULIN LANTUS (GLARGINE) 1 /0.01ml (100units/ml) SC SCH (22:00)
[2022-08-15] MEDS: DULoxetine HCL 30 MG CAP PO SCH (23:29)
[2022-08-16 05:00] VITALS: BP 105/35
[2022-08-16] MEDS: ACCU-CHEK COMFORT CURVE STRIP VI SCH ×2 (06:31→11:34)
[2022-08-16] MEDS: InsuLIN REG 1unit/0.01ml Soln (100units/ml) SC SCH ×2 (06:36→11:43)
[2022-08-16] MEDS: POLYETHYLENE GLYCOL PROPYLENE EACHEYE SCH ×2 (06:41→11:34)
[2022-08-16] MEDS: methylPREDNISolone SOD SUCC 125 MG/2 ML VL IV SCH ×2 (06:41→13:30)
[2022-08-16] MEDS: LEVOTHYROXINE SODIUM 50 MCG TAB PO SCH (06:41)
[2022-08-16 09:00] VITALS: BP 124/54
[2022-08-16] MEDS: FUROSEMIDE 20 MG/2 ML VIAL IV SCH (09:45)
[2022-08-16] MEDS: ASPirin 81 mg TAB PO SCH (09:45)
[2022-08-16] MEDS: DULoxetine HCL 30 MG CAP PO SCH (09:45)
[2022-08-16] MEDS: PANTOPRAZOLE 40 MG TAB PO SCH (09:46)
[2022-08-16] MEDS: METOPROLOL TARTRATE 25 MG TAB PO SCH (09:46)
[2022-08-16] MEDS: ENOXAPARIN SOD 40 MG/0.4 ML SYRINGE SC SCH (09:46)
[2022-08-16] MEDS ORDERED: SERTRALINE HCL 50 MG TAB PO SCH (10:00)
[2022-08-16] MEDS ORDERED: LEVO750T8 PO (10:19)
[2022-08-16] MEDS ORDERED: ALBUAER3 IN (10:20)
[2022-08-16] MEDS ORDERED: PRED20TA2 PO (10:20)
[2022-08-16] MEDS ORDERED: InsuLIN REG 1unit/0.01ml Soln (100units/ml) SC ONE ×2 (11:30→14:45)
[2022-08-16 12:09] VITALS: BP 124/54
== END 2022-08-16 15:25 | disposition home or self-care (01) | DRG 189 ==
LOC: ER 03:43 → OVERFLOW 18:41 → CENTRAL 08-15 15:20
PROVIDERS: ADMIT Nurse Practitioner Family; ATTEND Nurse Practitioner Family
DX: J96.01 Acute respiratory failure with hypoxia (principal); J45.901 Unspecified asthma with (acute) exacerbation; N17.9 Acute kidney failure, unspecified; J98.11 Atelectasis; I11.0 Hypertensive heart disease with heart failure; E03.9 Hypothyroidism, unspecified; E11.65 Type 2 diabetes mellitus with hyperglycemia; E87.6 Hypokalemia; Z20.822 Contact with and (suspected) exposure to COVID-19; Z79.4 Long term (current) use of insulin; Z82.49 Family history of ischemic heart disease and other diseases of the circulatory system; Z83.3 Family history of diabetes mellitus; Z90.710 Acquired absence of both cervix and uterus; Z88.8 Allergy status to other drugs, medicaments and biological substances; I50.9 Heart failure, unspecified
CPT/HCPCS: 36415; 71045; 80053; 81001; 82962; 83880; 84484; 85025; 85379; 87426; 87804; 93005; 93306; 94640; 96365; 96366; 96375; G0378; J1100; J1815

== ENCOUNTER → 2022-11-04 | Outpatient (CLI) | payer MEDICAID ==
[~2022-11-04] MED LIST changes: +ALBUAER3 IN; -CITA-77 PO; +DULO20CA PO; -DULO20CA36 PO; -FERR-20 PO; -INSLANTI SC; +LEVO750T8 PO; -METO25TA36 PO; +PRED20TA2 PO; +SERT50TA PO; +TRAM50TA2 PO
== END | disposition home or self-care (01) ==
LOC: LAB 14:24
PROVIDERS: ATTEND Physician Assistant
DX: R19.7 Diarrhea, unspecified (principal)
CPT/HCPCS: 87493

== ENCOUNTER 2023-02-19 10:29 | Day surgery (SDC) | payer OTHER, MEDICAID ==
[2023-02-17 12:18] LABS: Basophils # (auto) 0.1 10 ^3/uL (0-0.2); Basophils % (auto) 0.8 % (0.0-2.0); Eosinophils # (auto) 0.1 10 ^3/uL (0-0.8); Eosinophils % (auto) 1.7 % (0.0-7.0); Hematocrit 35.6 % (36.0-46.0); Hemoglobin 11.8 g/dL (12.2-16.2); Lymphocytes # (auto) 2.4 10 ^3/uL (0.4-5.4); Lymphocytes % (auto) 28.5 % (10.0-50.0); Mean Corpuscular Hemoglobin 29.1 pg (28.0-32.0); Mean Corpuscular Hgb Conc. 33.1 g/dL (32.0-36.0); Mean Corpuscular Volume 87.8 fL (80.0-100.0); Monocytes # (auto) 0.6 10 ^3/uL (0-1.3); Monocytes % (auto) 7.5 % (0.0-12.0); Neutrophils # (auto) 5.1 10 ^3/uL (1.6-8.6); Neutrophils % (auto) 61.5 % (37.0-80.0); Red Blood Cells 4.06 10^6/uL (4.0-5.20); Red Cell Distribution Width 14.8 % (11.8-14.3); White Blood Cell 8.3 10^3/uL (4.4-10.8)
[2023-02-17 12:48] LABS: INR 0.94 (0.9-1.15); Partial Thromboplastin Time 26.2 sec (24.6-33.4)
[2023-02-17 12:59] LABS: Albumin 3.2 g/dL (3.4-5.0); Calcium 8.1 mg/dL (8.5-10.1)
[2023-02-17 13:02] LABS: BUN/Creatinine Ratio 17.8 (10.0-20.0); Bilirubin, Total 0.3 mg/dL (0.2-1.0); Total Protein 6.6 g/dL (6.4-8.2)
[~2023-02-19] VITALS: Ht 144.8 cm; Wt 73.9 kg
[~2023-02-19 10:29] MED LIST changes: -ALPR2TAB6 PO; +CITA-73 PO; -DEXL60CA4 PO; -LEVO500T31 PO; -LEVO750T8 PO; +LIDOCAINE VISCOUS 2% 15ML UD ONE; +METO25TA5 PO; -METR500T PO; +PANT40TA2 PO; -POLYSOL2 EACHEYE; -PRED20TA2 PO; -SERT50TA PO; -TEMA30CA PO; +TRIA37.586 PO
[2023-02-19] MEDS: diphenhdrAMINE HCL 50 MG/1 ML VL ONE ×2 (13:08→13:12)
[2023-02-19] MEDS: MIDAZOLAM HCL 2MG/2ML 2ml VIAL (1mg/ml) ONE ×2 (13:08→13:14)
[2023-02-19] MEDS: fentaNYL CITRATE 100 MCG/2 ML VL ONE ×2 (13:08→13:17)
[2023-02-19 14:19] VITALS: BP 106/52
== END 2023-02-19 14:29 | disposition home or self-care (01) ==
LOC: GI 10:29
PROVIDERS: ATTEND Internal Medicine Gastroenterology
DX: R13.12 Dysphagia, oropharyngeal phase (principal); K21.9 Gastro-esophageal reflux disease without esophagitis; K29.50 Unspecified chronic gastritis without bleeding; K44.9 Diaphragmatic hernia without obstruction or gangrene; K22.4 Dyskinesia of esophagus; J45.909 Unspecified asthma, uncomplicated; I10 Essential (primary) hypertension; E11.9 Type 2 diabetes mellitus without complications; Z79.899 Other long term (current) drug therapy; Z79.84 Long term (current) use of oral hypoglycemic drugs
CPT/HCPCS: 36415; 43239; 43450; 80053; 82962; 85025; 85610; 85730; J1200; J2250; J3010; J7030

== ENCOUNTER 2023-03-07 19:04 | Inpatient (IN) | payer OTHER, MEDICAID ==
[~2023-03-07] VITALS: Ht 144.8 cm; Wt 76.3 kg
[~2023-03-07 19:04] MED LIST changes: -LIDOCAINE VISCOUS 2% 15ML UD ONE
[2023-03-07] MEDS ORDERED: MORPHINE SULFATE INJ 2 MG/ml SYRG IV ONE (19:30)
[2023-03-07] MEDS ORDERED: ONDANSETRON HCL 4 MG/2 ML VIAL IV ONE (19:30)
[2023-03-07] MEDS ORDERED: SODIUM CHLORIDE 0.9% 1,000 ML IV ONE (19:30)
[2023-03-07 20:09] LABS: Urine Bacteria MOD /hpf (None Seen); Urine Blood Negative /uL (Negative); Urine Budding Yeast FEW /hpf (None Seen); Urine Hyaline Cast FEW /lpf (0 - 2); Urine Mucus FEW (None Seen); Urine Specific Gravity 1.013 (1.001-1.035); Urine WBC 26 /hpf (0 - 5)
[2023-03-07 20:12] LABS: Basophils # (auto) 0.1 10 ^3/uL (0-0.2); Basophils % (auto) 0.5 % (0.0-2.0); Eosinophils # (auto) 0.1 10 ^3/uL (0-0.8); Eosinophils % (auto) 0.5 % (0.0-7.0); Hematocrit 39.6 % (36.0-46.0); Lymphocytes # (auto) 2.8 10 ^3/uL (0.4-5.4); Lymphocytes % (auto) 17.4 % (10.0-50.0); Mean Corpuscular Hemoglobin 29.1 pg (28.0-32.0); Mean Corpuscular Volume 88.2 fL (80.0-100.0); Monocytes # (auto) 0.8 10 ^3/uL (0-1.3); Monocytes % (auto) 4.8 % (0.0-12.0); Neutrophils # (auto) 12.3 10 ^3/uL (1.6-8.6); Neutrophils % (auto) 76.8 % (37.0-80.0); Nucleated Red Blood Cells % 0.1 %; Red Blood Cells 4.49 10^6/uL (4.0-5.20); Red Cell Distribution Width 15.2 % (11.8-14.3)
[2023-03-07 20:34] LABS: Albumin 3.8 g/dL (3.4-5.0); Potassium 3.8 mmol/L (3.5-5.1)
[2023-03-07 20:38] LABS: BUN/Creatinine Ratio 13.1 (10.0-20.0); Bilirubin, Total 0.4 mg/dL (0.2-1.0); Total Protein 7.5 g/dL (6.4-8.2)
[2023-03-07 22:45] LABS: Lactic Acid w/Reflex 2.3 mmol/L (0.4-2.0)
[2023-03-08] MEDS ORDERED: ONDANSETRON HCL 4 MG/2 ML VIAL IV ONE (03:45)
[2023-03-08] MEDS ORDERED: MORPHINE SULFATE INJ 2 MG/ml SYRG IV ONE (03:45)
[2023-03-08] MEDS ORDERED: PANTOPRAZOLE 40 MG/10 ML VIAL INJ IV ONE (04:45)
[2023-03-08] MEDS ORDERED: FAMOTIDINE INJECTION 40 MG in SODIUM CHL 0.9% 100 ML IV ONE (04:45)
[2023-03-08] MEDS ORDERED: FAMOTIDINE (10MG/ML) 2ML VL IV ONE (06:14)
[2023-03-08] MEDS ORDERED: ONDANSETRON HCL 4 MG/2 ML VIAL IV PRN (06:45)
[2023-03-08] MEDS ORDERED: MORPHINE SULFATE INJ 2 MG/ml SYRG IV PRN ×2 (06:45)
[2023-03-08] MEDS ORDERED: ACETAMINOPHEN 325 MG TAB PO PRN (06:45)
[2023-03-08] MEDS ORDERED: METOCLOPRAMIDE HCL 5MG/ml INJ 2ml VIAL IV PRN (06:45)
[2023-03-08] MEDS ORDERED: HYDROcodone-ACET 5/325MG TAB PO PRN (06:45)
[2023-03-08] MEDS ORDERED: NITROGLYCERIN 0.4 MG SL TAB SL PRN (06:45)
[2023-03-08] MEDS: SODIUM CHLORIDE 0.9% 1,000 ML IV SCH ×2 (08:04→23:25)
[2023-03-08] MEDS: PANTOPRAZOLE 40 MG/10 ML VIAL INJ IV SCH ×2 (09:18→22:35)
[2023-03-08 09:19] LABS: Basophils # (auto) 0.1 10 ^3/uL (0-0.2); Basophils % (auto) 0.9 % (0.0-2.0); Eosinophils # (auto) 0.1 10 ^3/uL (0-0.8); Eosinophils % (auto) 0.6 % (0.0-7.0); Hematocrit 36.9 % (36.0-46.0); Hemoglobin 11.9 g/dL (12.2-16.2); Lymphocytes # (auto) 2.9 10 ^3/uL (0.4-5.4); Lymphocytes % (auto) 21.4 % (10.0-50.0); Mean Corpuscular Hemoglobin 29.4 pg (28.0-32.0); Mean Corpuscular Hgb Conc. 32.2 g/dL (32.0-36.0); Mean Corpuscular Volume 91.3 fL (80.0-100.0); Monocytes % (auto) 7.3 % (0.0-12.0); Neutrophils # (auto) 9.4 10 ^3/uL (1.6-8.6); Neutrophils % (auto) 69.8 % (37.0-80.0); Nucleated Red Blood Cells % 0.1 %; Red Blood Cells 4.04 10^6/uL (4.0-5.20); Red Cell Distribution Width 15.4 % (11.8-14.3); White Blood Cell 13.5 10^3/uL (4.4-10.8)
[2023-03-08 09:25] LABS: BUN/Creatinine Ratio 18.5 (10.0-20.0); Calcium 8.7 mg/dL (8.5-10.1); Potassium 4.1 mmol/L (3.5-5.1)
[2023-03-08] MEDS ORDERED: DEXTROSE (50%) 50ML SYRG IV PRN (12:30)
[2023-03-08] MEDS: PIPERACILLIN-TAZOB 3.375GM 100 ML IV SCH ×2 (14:06→22:38)
[2023-03-08] MEDS: InsuLIN REG 1unit/0.01ml Soln (100units/ml) SC SCH ×2 (17:00→22:00)
[2023-03-08] MEDS: ACCU-CHEK COMFORT CURVE STRIP VI SCH ×2 (17:15→22:18)
[2023-03-08] MEDS: DULoxetine HCL 30 MG CAP PO SCH (22:38)
[2023-03-09 05:09] LABS: Basophils # (auto) 0 10 ^3/uL (0-0.2); Basophils % (auto) 0.3 % (0.0-2.0); Eosinophils # (auto) 0.2 10 ^3/uL (0-0.8); Eosinophils % (auto) 1.9 % (0.0-7.0); Hematocrit 34.6 % (36.0-46.0); Hemoglobin 11.7 g/dL (12.2-16.2); Lymphocytes # (auto) 2.6 10 ^3/uL (0.4-5.4); Mean Corpuscular Hemoglobin 29.8 pg (28.0-32.0); Mean Corpuscular Hgb Conc. 33.8 g/dL (32.0-36.0); Mean Corpuscular Volume 88.4 fL (80.0-100.0); Monocytes # (auto) 0.6 10 ^3/uL (0-1.3); Monocytes % (auto) 6.9 % (0.0-12.0); Neutrophils # (auto) 4.9 10 ^3/uL (1.6-8.6); Neutrophils % (auto) 58.9 % (37.0-80.0); Red Blood Cells 3.92 10^6/uL (4.0-5.20); Red Cell Distribution Width 15.5 % (11.8-14.3); White Blood Cell 8.3 10^3/uL (4.4-10.8)
[2023-03-09 05:24] LABS: Albumin 3.1 g/dL (3.4-5.0); Calcium 8.4 mg/dL (8.5-10.1); Potassium 3.8 mmol/L (3.5-5.1)
[2023-03-09 05:28] LABS: BUN/Creatinine Ratio 15.3 (10.0-20.0); Bilirubin, Total 0.8 mg/dL (0.2-1.0); Total Protein 6.4 g/dL (6.4-8.2)
[2023-03-09] MEDS: InsuLIN REG 1unit/0.01ml Soln (100units/ml) SC SCH ×4 (07:00→21:37)
[2023-03-09] MEDS: ACCU-CHEK COMFORT CURVE STRIP VI SCH ×4 (07:08→21:33)
[2023-03-09] MEDS: LEVOTHYROXINE SODIUM 50 MCG TAB PO SCH (07:50)
[2023-03-09] MEDS: PIPERACILLIN-TAZOB 3.375GM 100 ML IV SCH ×3 (08:23→22:46)
[2023-03-09] MEDS: METOPROLOL TARTRATE 25 MG TAB PO SCH (10:35)
[2023-03-09] MEDS: DULoxetine HCL 30 MG CAP PO SCH ×2 (10:35→21:33)
[2023-03-09] MEDS: CITALOPRAM HYDROBR 20 MG TAB PO SCH (10:35)
[2023-03-09] MEDS: PANTOPRAZOLE 40 MG/10 ML VIAL INJ IV SCH (10:35)
[2023-03-09 11:38] VITALS: BP 133/57
[2023-03-09 16:56] VITALS: BP 133/57
[2023-03-09 17:51] VITALS: BP 148/64
[2023-03-09] MEDS: PANTOPRAZOLE 40 MG TAB PO SCH (21:33)
[2023-03-09] MEDS: SODIUM CHLORIDE 0.9% 1,000 ML IV SCH (21:39)
[2023-03-09 22:00] VITALS: BP 142/53
[2023-03-10 05:00] VITALS: BP 124/78
[2023-03-10] MEDS: PIPERACILLIN-TAZOB 3.375GM 100 ML IV SCH ×3 (05:46→20:32)
[2023-03-10] MEDS: LEVOTHYROXINE SODIUM 50 MCG TAB PO SCH (05:51)
[2023-03-10] MEDS: ACCU-CHEK COMFORT CURVE STRIP VI SCH ×4 (05:52→21:51)
[2023-03-10] MEDS: InsuLIN REG 1unit/0.01ml Soln (100units/ml) SC SCH ×4 (05:52→21:56)
[2023-03-10 06:17] LABS: Basophils # (auto) 0.1 10 ^3/uL (0-0.2); Basophils % (auto) 0.8 % (0.0-2.0); Eosinophils # (auto) 0.2 10 ^3/uL (0-0.8); Eosinophils % (auto) 2.5 % (0.0-7.0); Hematocrit 33.6 % (36.0-46.0); Lymphocytes # (auto) 2.5 10 ^3/uL (0.4-5.4); Lymphocytes % (auto) 35.2 % (10.0-50.0); Mean Corpuscular Hgb Conc. 32.8 g/dL (32.0-36.0); Mean Corpuscular Volume 88.6 fL (80.0-100.0); Monocytes # (auto) 0.6 10 ^3/uL (0-1.3); Monocytes % (auto) 8.7 % (0.0-12.0); Neutrophils # (auto) 3.8 10 ^3/uL (1.6-8.6); Neutrophils % (auto) 52.8 % (37.0-80.0); Red Blood Cells 3.79 10^6/uL (4.0-5.20); Red Cell Distribution Width 15.2 % (11.8-14.3); White Blood Cell 7.2 10^3/uL (4.4-10.8)
[2023-03-10 06:34] LABS: Calcium 8.6 mg/dL (8.5-10.1); Potassium 3.3 mmol/L (3.5-5.1)
[2023-03-10] MEDS ORDERED: GASTROGRAFIN 120 ML SOL ONE (08:08)
[2023-03-10 09:10] VITALS: BP 145/61
[2023-03-10] MEDS: METOPROLOL TARTRATE 25 MG TAB PO SCH (10:00)
[2023-03-10] MEDS: CITALOPRAM HYDROBR 20 MG TAB PO SCH (10:15)
[2023-03-10] MEDS: DULoxetine HCL 30 MG CAP PO SCH ×2 (10:15→20:32)
[2023-03-10] MEDS: PANTOPRAZOLE 40 MG TAB PO SCH ×2 (10:15→20:32)
[2023-03-10] MEDS: SODIUM CHLORIDE 0.9% 1,000 ML IV SCH (10:16)
[2023-03-10 13:00] VITALS: BP 130/52
[2023-03-10] MEDS ORDERED: POTASSIUM CHL 20 Meq TABLET PO ONE (13:45)
[2023-03-10 16:53] VITALS: BP 135/66
[2023-03-10 20:00] VITALS: BP 132/62
[2023-03-10 22:00] VITALS: BP 132/42
[2023-03-11 05:00] VITALS: BP 139/58
[2023-03-11] MEDS: PIPERACILLIN-TAZOB 3.375GM 100 ML IV SCH (05:51)
[2023-03-11] MEDS: ACCU-CHEK COMFORT CURVE STRIP VI SCH ×2 (05:52→12:00)
[2023-03-11] MEDS: LEVOTHYROXINE SODIUM 50 MCG TAB PO SCH (05:52)
[2023-03-11] MEDS: InsuLIN REG 1unit/0.01ml Soln (100units/ml) SC SCH ×2 (05:58→12:08)
[2023-03-11 06:40] LABS: Potassium 3.3 mmol/L (3.5-5.1)
[2023-03-11 06:44] LABS: BUN/Creatinine Ratio 8.6 (10.0-20.0); Calcium 8.4 mg/dL (8.5-10.1)
[2023-03-11 09:00] VITALS: BP 132/58
[2023-03-11] MEDS: CITALOPRAM HYDROBR 20 MG TAB PO SCH (10:23)
[2023-03-11] MEDS: DULoxetine HCL 30 MG CAP PO SCH (10:23)
[2023-03-11] MEDS: METOPROLOL TARTRATE 25 MG TAB PO SCH (10:23)
[2023-03-11] MEDS: PANTOPRAZOLE 40 MG TAB PO SCH (10:23)
[2023-03-11] MEDS ORDERED: POTASSIUM CHL 20 Meq TABLET PO ONE (12:00)
[2023-03-11] MEDS ORDERED: CEFD300C2 PO (12:05)
== END 2023-03-11 15:32 | disposition home or self-care (01) | DRG 871 ==
LOC: ER 19:04 → TELE 03-08 06:34 → TELE-WESTW 03-09 11:30 → WEST WING 03-11 02:09
PROVIDERS: ADMIT Internal Medicine; ATTEND Internal Medicine
DX: A41.9 Sepsis, unspecified organism (principal); N17.0 Acute kidney failure with tubular necrosis; K26.3 Acute duodenal ulcer without hemorrhage or perforation; K31.1 Adult hypertrophic pyloric stenosis; N30.00 Acute cystitis without hematuria; K29.70 Gastritis, unspecified, without bleeding; F32.A Depression, unspecified; E11.65 Type 2 diabetes mellitus with hyperglycemia; E11.22 Type 2 diabetes mellitus with diabetic chronic kidney disease; E03.9 Hypothyroidism, unspecified; I12.9 Hypertensive chronic kidney disease with stage 1 through stage 4 chronic kidney disease, or unspecified chronic kidney disease; N18.9 Chronic kidney disease, unspecified; E66.01 Morbid (severe) obesity due to excess calories; Z68.36 Body mass index [BMI] 36.0-36.9, adult; Z88.8 Allergy status to other drugs, medicaments and biological substances; Z79.899 Other long term (current) drug therapy; Z83.3 Family history of diabetes mellitus; Z90.710 Acquired absence of both cervix and uterus
CPT/HCPCS: 36415; 74176; 74250; 80048; 80053; 81001; 82378; 82962; 83036; 83605; 83690; 84443; 84484; 85025; 86677; 87040; 87086; 93005; 96361; 96365; 96375; C9113; G0378; J1815; J2405; J2543; J3490

== ENCOUNTER 2023-06-11 07:08 | Day surgery (SDC) | payer OTHER, MEDICAID ==
[~2023-06-11] VITALS: Ht 144.8 cm; Wt 77.1 kg
[~2023-06-11 07:08] MED LIST changes: +ALOG1TAB2 PO; -ALOG25TA OR; -METO25TA5 PO; +METO25TA93 PO; -TRAM50TA2 PO
[2023-06-11] MEDS ORDERED: HEPARIN SODIUM (PORCINE) 5000 UNITS/ML 1ML VIAL ONE (07:50)
[2023-06-11] MEDS ORDERED: ANGIOMAX 250 MG VIAL IV ONE (07:50)
[2023-06-11] MEDS ORDERED: VERAPAMIL 2.5MG/ML INJ 2ML VIAL IV ONE (07:50)
[2023-06-11] MEDS ORDERED: MIDAZOLAM HCL 2MG/2ML 2ml VIAL (1mg/ml) ONE (07:51)
[2023-06-11] MEDS ORDERED: SODIUM CHL 0.9% 0 ML ONE (07:51)
[2023-06-11] MEDS ORDERED: fentaNYL CITRATE 100 MCG/2 ML VL ONE (07:51)
[2023-06-11] MEDS ORDERED: IODIXANOL 320MG/ML 100ML BTL IV ONE ×2 (07:51→08:15)
[2023-06-11] MEDS ORDERED: LIDOCAINE 2%HCL (LOCAL ANESTH.) INJ 20ML MDV ONE (07:51)
[2023-06-11] MEDS ORDERED: methylPREDNISolone SOD SUCC 125 MG/2 ML VL ONE ×2 (08:15→08:21)
[2023-06-11] MEDS ORDERED: diphenhdrAMINE HCL 50 MG/1 ML VL ONE (08:15)
[2023-06-11] MEDS ORDERED: FAMOTIDINE (10MG/ML) 2ML VL IV ONE (08:16)
[2023-06-11] MEDS ORDERED: DULoxetine HCL 30 MG CAP PO ONE (09:30)
[2023-06-11] MEDS ORDERED: CITALOPRAM HYDROBR 20 MG TAB PO ONE (09:30)
== END 2023-06-11 11:01 | disposition home or self-care (01) ==
LOC: CATH 07:08
PROVIDERS: ATTEND Internal Medicine Cardiovascular Disease
DX: I25.10 Atherosclerotic heart disease of native coronary artery without angina pectoris (principal); I11.9 Hypertensive heart disease without heart failure; I77.1 Stricture of artery; R07.89 Other chest pain; E11.9 Type 2 diabetes mellitus without complications; E03.9 Hypothyroidism, unspecified; J45.909 Unspecified asthma, uncomplicated; Z90.49 Acquired absence of other specified parts of digestive tract; Z79.899 Other long term (current) drug therapy; Z91.041 Radiographic dye allergy status
CPT/HCPCS: 93458; C1725; C1894; J1200; J1644; J2250; J2930; J3010; J3490; J7040; Q9967; 99152

== ENCOUNTER 2024-11-26 23:18 | Emergency (ER) | payer OTHER, MEDICAID ==
[~2024-11-26] VITALS: Ht 152.4 cm; Wt 70.0 kg
--- NOTE | 2024-11-27 00:22 | DVH ---
CLINICAL INDICATION: Right hand pain TECHNIQUE: XY R HAND 2 VIEW XRAY Comparison: None FINDINGS/IMPRESSION: There is no evidence of acute fracture or dislocation. Soft tissues are unremarkable.
[2024-11-27 00:28] VITALS: BP 102/54; PULSE 72; RESP 17; TEMP 98.2; O2SAT 97
[2024-11-27] MEDS ORDERED: ACET500T58 PO (00:28)
--- NOTE | 2024-11-27 00:29 | ED.PDOC ---
Musculoskeletal HPI Comments 74-year-old female presents to ER with complaints of right hand pain x1 day. Patient reports that she felt a popping sensation/sudden onset of pain to right hand while she was using her right hand to stir a "big pot of soup" at 5 p.m. prior to arrival to ER. She rates her current pain a 8/10 to right hand with radiation towards right forearm. Denies use of medications for current symptoms. Denies numbness/tingling, skin changes or any further symptoms/complaints Chief Complaint: Upper Extremity Time Seen by MD: 23:40 Primary Care Provider: GAYATRI (SAWYER) Reviewed Notes: Nurses Notes, Medications, Allergies Allergies: Coded Allergies: Ondansetron (Verified Allergy, Intermediate, Red welts along vein, 01/11/17) Hydroxyzine (Verified Allergy, Unknown, 08/15/22) Iodine (Verified Allergy, Unknown, rash, itching, SOB, 03/10/23) Meperidine (Verified Allergy, Unknown, 09/02/15) Promethazine (Verified Allergy, Unknown, 09/02/15) Shellfish Allergy (Verified Allergy, Unknown, 03/10/23) Home Meds Active Scripts Acetaminophen (Acetaminophen) 500 Mg Tab, 500 MG PO Q4HPRN, #30 TAB 0 Refills Prov:LANDY NOYOLA 11/27/24 Pantoprazole Sodium Sesquihydr (Protonix) 40 Mg Tab, 40 MG PO QAM, #30 TAB Prov:ANTHONY PEREZ MD 10/05/22 Albuterol Sulfate (VENTOLIN MDI) 90 Mcg Ih, 90 MCG IN Q4HR, #1 INH Prov:SHAYLA BILL MD 08/16/22 Reported Medications Metoprolol Succinate (Metoprolol Succinate Er) 25 Mg Tab, 25 MG PO DAILY 06/09/23 Alogliptin Benzoate (Alogliptin) 25 Mg Tab, 25 MG PO DAILY 06/09/23 Hydrochlorothiazide W/Triamter (Triamterene/Hydrochloroth) 1 Cap Cap, 1 CAP PO QAM, CAP 02/17/23 Citalopram Hydrobromide (Citalopram Hydrobromide) 40 Mg Tab, 40 MG PO DAILY for 30 Days, MG 02/17/23 Duloxetine Hcl (Cymbalta) 20 Mg Cap, 60 MG PO BID, CAP 08/15/22 Insulin Glargine (Lantus Solostar) Solostar Inj, 30 UNIT SUBCUT DAILY, #15 ML 3 Refills 09/03/15 Levothyroxine Sodium (Levothyroxine Sodium) 150 Mcg Tab, 1 TAB PO DAILY, #30 TAB 5 Refills 09/03/15 Ergocalciferol (Vitamin D) 50,000 Unt Cap, 1 CAP PO QWEEKLY, #4 CAP 2 Refills 09/03/15 Information Source: Patient Mode of Arrival: Ambulatory Past Medical History PAST MEDICAL HISTORY: Anxiety, Asthma, DM, HTN, Thyroid Surgical History: Denies all surgeries NUTS AND BOLTS ASSEMBLER History: No Pertinent NUTS AND BOLTS ASSEMBLER History Family History Family History: Unknown Social History Smoker: Non-Smoker Alcohol: Denies ETOH Use Drugs: Denies Drug Use Lives In: Home Constitutional: denies: chills, diaphoresis, fatigue, fever, malaise, sweats, weakness, others EENTM: denies: blurred vision, double vision, ear bleeding, ear discharge, ear drainage, ear pain, ear ringing, eye pain, eye redness, hearing loss, mouth pain, mouth swelling, nasal discharge, nose bleeding, nose congestion, nose pain, photophobia, tearing, throat pain, throat swelling, voice changes, others Respiratory: denies: cough, hemoptysis, orthopnea, SOB at rest, shortness of breath, SOB with excertion, stridor, wheezing, others Cardiovascular: denies: chest pain, dizzy spells, diaphoresis, Dyspnea on exertion, edema, irregular heart beat, left arm pain, lightheadedness, palpitations, PND, syncope, others Gastrointestinal: denies: abdomen distended, abdominal pain, blood streaked bowels, constipated, diarrhea, dysphagia, difficulty swallowing, hematemesis, melena, nausea, poor appetite, poor fluid intake, rectal bleeding, rectal pain, vomiting, others Genitourinary: denies: abnormal vagina bleeding, burning, dyspareunia, dysuria, flank pain, frequency, hematuria, incontinence, pain, , vagina discharge, urgency, others Neurological: denies: dizziness, fainting, headache, left sided numbness, left sided weakness, numbness, paresthesia, pre-existing deficit, right sided numbness, right sided weakness, seizure, speech problems, tingling, tremors, weakness, others Musculoskeletal: reports: others ( STATED IN HPI) Integumetry: denies: bruises, change in color, change in hair/nails, dryness, laceration, lesions, lumps, rash, wounds, others Allergic/Immunocompromised: denies: Difficulty Healing, Frequent Infections, Hives, Itching, others Hematologic/Lymphatic: denies: anemia, blood clots, easy bleeding, easy bruising, swollen glands, others Endocrine: denies: excessive hunger, excessive sweating, excessive thirst, excessive urination, flushing, intolerance to cold, intolerance to heat, unexplained weight gain, unexplained weight loss, others Psychiatric: denies: anxiety, bipolar disorder, depression, hopeless, panic disorder, schizophrenia, sleepless, suicidal, others Physical Exam General Appearance: No Apparent Distress HEENT: PERRL/EOMI Neck: Full Range of Motion, Non-Tender, Normal Respiratory: Chest Non-Tender, Lungs Clear, No Accessory Muscle Use, No Respiratory Distress, Normal Breath Sounds Cardiovascular: No Murmur, No Gallop, Regular Rate/Rhythm Breast Exam: Deferred Gastrointestinal: NOT DONE Genitalia: Deferred Pelvic: Deferred Rectal: Deferred Extremities: Normal capillary refill, Normal range of motion Musculoskeletal : Extremity Location: Forearm (SLIGHT TTP TO RIGHT MID FOREARM NOTED. NO SKIN CHANGES/DEFORMITY NOTED), Hand (TTP NOTED TO REGION OF RIGHT 3RD METACARPAL. NO SKIN CHANGES/DEFORMITY NOTED. PATIENT ABLE TO FULLY MOVE ALL FINGERS RIGHT HAND. PULSES INTACT. NO TTP TO RIGHT WRIST NOTED) Neurologic: Alert, No Motor Deficits, Normal Affect, Normal Mood, No Sensory Deficits Cerebellar Function: Normal Reflexes: Normal Skin: Dry, Normal Color, Warm Peripheral Pulses: 2+ Radial (R), 2+ Radial (L), 2+ Brachial (R), 2+ Brachial ( L) Lymphatic: No Adenopathy Was a procedure done? Was a procedure done?: No Sedation Sedation?: No Differential Diagnosis EXT Differential Diagnosis: Fracture, Dislocation, Neurovascular injury X-Ray, Labs, Meds, VS Vital Signs Date Time Temp Pulse Resp B/P (MAP) Pulse Ox O2 Delivery O2 Flow Rate FiO2 11/27/24 00:28 98.2 72 17 102/54 (70) 97 98.2 11/27/24 00:28 72 17 97 Room Air 11/26/24 23:25 98.2 74 16 119/42 67 97 98.2 Current Medications Medications (Trade) Dose Ordered Sig/Antoine Route Start Time Stop Time Status Last Admin Acetaminophen (Tylenol Tablet) 650 mg ONCE ONCE PO 11/27/24 00:30 11/27/24 00:31 DC 11/27/24 00:34 PATIENT: KAMI ARAYA LACCT: [id number]: [id number] : 1950 LOC: ER ROOM / BED: / AGE / SEX: 74 / F ADM STATUS: REG ER SERVICE 39 ORDERING PHYSICIAN: LANDY NOYOLA PROCEDURE(s): RHAN2 - R HAND 2 VIEW XRAY REASON: Right hand pain ORDER NUMBER(s): [id number], ACCESSION NUMBER(s): [id number] CLINICAL INDICATION: Right hand pain TECHNIQUE: XY R HAND 2 VIEW XRAY Comparison: None FINDINGS/IMPRESSION: There is no evidence of acute fracture or dislocation. Soft tissues are unremarkable. ATED BY: ODALYS ROMERO MD DICTATED DATE/TIME: 11/27/2418 SIGNED BY: ODALYS ROMERO MD SIGNED DATE/TIME: 11/27/2418 CC: PATIENT: KAMI ARAYA ACCT: [id number] UNIT: [id number] : 1950 LOC: ER ROOM / BED: / AGE / SEX: 74 / F ADM STATUS: REG ER SERVICE 39 ORDERING PHYSICIAN: LANDY NOYOLA PROCEDURE(s): RFOR - R FOREARM XRAY REASON: Right hand/forearm pain ORDER NUMBER(s): [id number], ACCESSION NUMBER(s): [id number] EXAM: XY R FOREARM XRAY HISTORY: Right hand/forearm pain COMPARISON: None TECHNIQUE: AP and lateral views of the right forearm were performed. FINDINGS/IMPRESSION: No acute fracture of the right radius or ulna. ATED BY: SUNNI DIEZ DO DICTATED DATE/TIME: 11/27/2431 SIGNED BY: SUNNI DIEZ DO SIGNED DATE/TIME: 11/27/2431 CC: RIGHT HAND X-RAY REVIEWED RIGHT FOREARM X-RAY REVIEWED TYLENOL 650 MG P.O. ORDERED PATIENT NEUROVASCULARLY INTACT AND REPORTED IMPROVEMENT IN SYMPTOMS PRIOR TO DISCHARGE ADVISED ON REST/NO STRENUOUS ACTIVITY, ELEVATION AND ALTERNATE ICE ON/OFF NEEDED FOR PAIN ADVISED TO FOLLOW UP WITH PCP IN 1-2 DAYS PATIENT VERBALIZED UNDERSTANDING AND AGREEABLE WITH CURRENT PLAN OF CARE ADVISED TO RETURN TO ER IMMEDIATELY IF SYMPTOMS WORSEN Images Reviewed?: Images reviewed and evaluated by me Time of 1ST Reevaluation: 00:02 Reevaluation 1ST: N/A Patient Education/Counseling: Diagnosis, Treatment, Prognosis, Need For Follow Up Family Education/Counseling: No Family Present Departure 1 Departure Time of Disposition: 00:22 Impression: Primary Impression: Sprain of hand, right Qualified Codes: S63.91XA - Sprain of unspecified part of right wrist and hand, initial encounter Additional Impression: Strain of forearm, right Qualified Codes: S56.911A - Strain of unspecified muscles, fascia and tendons at forearm level, right arm, initial encounter Disposition: 01 HOME / SELF CARE / HOMELESS Condition: Stable e-Prescriptions Acetaminophen (Acetaminophen) 500 Mg Tab 500 MG PO Q4HPRN, #30 TAB 0 Refills Prov: LANDY NOYOLA 11/27/24 Discharged With: Friend Critical Care Note Critical Care Time?: No Stability Stability form required: No Heart Score Heart Score: Heart Score Response (Comments) Value History N/A 0 EKG N/A 0 Age N/A 0 Risk Factors N/A 0 Troponin N/A 0 Total 0 LANDY NOYOLA Nov 27, 2024 00:29
[2024-11-27] MEDS: ACETAMINOPHEN 325 MG TAB PO ONE (00:34)
--- NOTE | 2024-11-27 00:34 | DVH ---
EXAM: XY R FOREARM XRAY HISTORY: Right hand/forearm pain COMPARISON: None TECHNIQUE: AP and lateral views of the right forearm were performed. FINDINGS/IMPRESSION: No acute fracture of the right radius or ulna.
[2024-11-29] MEDS ORDERED: ceFAZolin 2 GM/D5W100ml 0 ML IV ONE (09:32)
== END 2024-11-27 00:55 | disposition home or self-care (01) ==
LOC: ER 23:18
DX: S56.911A Strain of unspecified muscles, fascia and tendons at forearm level, right arm, initial encounter (principal); S63.91XA Sprain of unspecified part of right wrist and hand, initial encounter; J45.909 Unspecified asthma, uncomplicated; E11.9 Type 2 diabetes mellitus without complications; I10 Essential (primary) hypertension; E03.9 Hypothyroidism, unspecified; Z88.8 Allergy status to other drugs, medicaments and biological substances; Z88.6 Allergy status to analgesic agent; Z79.899 Other long term (current) drug therapy; X58.XXXA Exposure to other specified factors, initial encounter; Y93.89 Activity, other specified; Y92.89 Other specified places as the place of occurrence of the external cause; Y99.8 Other external cause status
CPT/HCPCS: 73090; 73120

== ENCOUNTER → 2025-03-27 | Day surgery (SDC) | payer OTHER, MEDICAID ==
[2025-03-23 12:30] LABS: Hematocrit 35.6 % (36.0-46.0); Hemoglobin 11.9 g/dL (12.2-16.2); Mean Corpuscular Hemoglobin 28.8 pg (28.0-32.0); Mean Corpuscular Volume 86.2 fL (80.0-100.0); Nucleated Red Blood Cells % 0.0 %
[2025-03-23 12:46] LABS: INR 1.01 (0.9-1.15); Partial Thromboplastin Time 26.0 SEC (24.5-34.5); Prothrombin Time 10.7 sec (9.3-11.8)
[2025-03-23 12:55] LABS: Alanine Aminotransferase 18 U/L (7-40); Albumin 4.2 g/dL (3.2-4.8); Anion Gap 5 (5-15); BUN/Creatinine Ratio 27.9 (10.0-20.0); Bilirubin, Total 0.7 mg/dL (0.2-1.0); Calcium 10.0 mg/dL (8.7-10.4); Carbon Dioxide 29 mmol/L (20-31); Chloride 98 mmol/L (98-107); Glucose 75 mg/dL (74-106); Potassium 4.3 mmol/L (3.5-5.1); Total Protein 7.1 g/dL (5.7-8.2)
[2025-03-23 12:58] LABS: Alkaline Phosphatase 154 U/L (46-116); Blood Urea Nitrogen 24 mg/dL (9-23); Sodium 132 mmol/L (136-145)
[~2025-03-27] VITALS: Ht 144.8 cm; Wt 71.7 kg
[~2025-03-27] MED LIST changes: +ACET500T58 PO; +SODIUM CHLORIDE LOCK 10 ML ONE
[2025-03-27 14:25] VITALS: PULSE 79; RESP 20; O2SAT 94
[2025-03-27] MEDS: MIDAZOLAM HCL 5 MG/ML-1ML VIAL ONE (14:31)
[2025-03-27] MEDS: fentaNYL CITRATE 100 MCG/2 ML VL ONE (14:31)
[2025-03-27] MEDS: diphenhdrAMINE HCL 50 MG/1 ML VL ONE (14:31)
[2025-03-27 14:55] VITALS: PULSE 70; RESP 15; O2SAT 93
--- NOTE | 2025-03-27 15:09 | DVHOP2 ---
Operative Report DATE OF OPERATION: 03/27/25 PROCEDURE: Colonoscopy with hot snare polypectomy. PREOPERATIVE INDICATION: The patient is a 74 -year-old female undergoing colonoscopy for change in bowel habits and abdominal pain POSTOPERATIVE DIAGNOSES: 1. She had a 1-1.5 cm benign-appearing ascending colon polyp that was seen and removed by hot snare polypectomy and the specimens were retrieved 2. Trace internal hemorrhoids otherwise completely normal colonoscopy examination up to the terminal ileum PROCEDURE PERFORMED BY: Antonia Hernandez M.D. SCOPE: Olympus videocolonoscope. ASA CLASS: 2 PREOPERATIVE MEDICATIONS: Versed 3 mg, Fentanyl 75 mcg, Benadryl 50 mg PROCEDURE IN DETAIL: After obtaining an informed consent, the patient was placed on left lateral decubitus position. She was then sedated with the above medications. A rectal examination was performed that was normal. The colonoscope was then passed through the anus into the rectosigmoid and through the descending, transverse, and ascending colon up to the cecum with visualization of the appendiceal orifice, base of the cecum and the ileocecal valve. The colonoscope was then withdrawn. The distal 5 cm of the terminal ileum were normal No masses were seen. There was no colitis or clear-cut diverticular disease. Patient had a 1-1.5 cm benign-appearing mid ascending colon polyp seen and removed by hot snare polypectomy and the specimens were retrieved She had mild sigmoid tortuosity and spasm. On retroflexion she had trace to 1+ internal hemorrhoids The patient tolerated the procedure well without difficulty. WITHDRAWAL TIME: 8 minutes QUALITY OF THE PREP: [place] Bowel Prep score: 9. COMPLICATIONS : None SPECIMENS: Ascending colon polyp DISPOSITION: Stable D/C to home PLAN: 1. Repeat colonoscopy base on biopsy result likely in 3-5 years 2. Resume GI soft diet advance as tolerated 3. Increase fluid and fiber intake 4. Local anorectal hemorrhoidal care 5. Outpatient follow up with me in 2-4 weeks to review results and discuss further management ANTONIA HERNANDEZ MD Mar 27, 2025 15:09
[2025-03-27 15:45] VITALS: BP 129/66; PULSE 64; RESP 19; O2SAT 97
== END | disposition home or self-care (01) ==
LOC: GI 12:33
PROVIDERS: ATTEND Internal Medicine Gastroenterology
DX: R19.4 Change in bowel habit (principal); D12.2 Benign neoplasm of ascending colon; K64.0 First degree hemorrhoids; R10.9 Unspecified abdominal pain; E11.9 Type 2 diabetes mellitus without complications; I10 Essential (primary) hypertension; Z86.0100 Personal history of colon polyps, unspecified; Z90.49 Acquired absence of other specified parts of digestive tract; Z90.710 Acquired absence of both cervix and uterus; Z91.013 Allergy to seafood; Z91.041 Radiographic dye allergy status; Z88.8 Allergy status to other drugs, medicaments and biological substances; Z79.899 Other long term (current) drug therapy
CPT/HCPCS: 36415; 45385; 80053; 82962; 85025; 85610; 85730; 88305; J1200; J2250; J3010

== ENCOUNTER 2025-04-17 17:18 | Emergency (ER) | payer OTHER, MEDICAID ==
[~2025-04-17] VITALS: Ht 144.8 cm; Wt 70.0 kg
[~2025-04-17 17:18] MED LIST changes: -SODIUM CHLORIDE LOCK 10 ML ONE
--- NOTE | 2025-04-17 19:02 | ED.PDOC ---
History of Present Illness HPI Comments This is a 74-year-old female who comes in with chief complaint of status post fall onto her right shoulder. The patient states that she was turning around in her yard and somehow lost her balance while she was reaching for the hose. The patient landed on her right shoulder and comes in now complaining of pain. She states that she has had surgery on that shoulder in the past and she feels that the pain feels similar to when she injured it. Chief Complaint: Fall Injury Time Seen by MD: 17:26 Primary Care Provider: GAYATRI (SEDGWICK) Reviewed Notes: Nurses Notes, Medications, Allergies (Allergies to iodine) Allergies: Coded Allergies: Iodine (Verified Allergy, Unknown, rash, itching, SOB, 03/10/23) Home Meds Active Scripts Acetaminophen (Acetaminophen) 500 Mg Tab, 500 MG PO Q4HPRN, #30 TAB 0 Refills Prov:LANDY NOYOLA 11/27/24 Pantoprazole Sodium Sesquihydr (Protonix) 40 Mg Tab, 40 MG PO QAM, #30 TAB Prov:ANTHONY PEREZ MD 10/05/22 Albuterol Sulfate (VENTOLIN MDI) 90 Mcg Ih, 90 MCG IN Q4HR, #1 INH Prov:SHAYLA BILL MD 08/16/22 Reported Medications Metoprolol Succinate (Metoprolol Succinate Er) 25 Mg Tab, 25 MG PO DAILY 06/09/23 Alogliptin Benzoate (Alogliptin) 25 Mg Tab, 25 MG PO DAILY 06/09/23 Hydrochlorothiazide W/Triamter (Triamterene/Hydrochloroth) 1 Cap Cap, 1 CAP PO QAM, CAP 02/17/23 Citalopram Hydrobromide (Citalopram Hydrobromide) 40 Mg Tab, 40 MG PO DAILY for 30 Days, MG 02/17/23 Duloxetine Hcl (Cymbalta) 20 Mg Cap, 60 MG PO BID, CAP 08/15/22 Insulin Glargine (Lantus Solostar) Solostar Inj, 30 UNIT SUBCUT DAILY, #15 ML 3 Refills 09/03/15 Levothyroxine Sodium (Levothyroxine Sodium) 150 Mcg Tab, 1 TAB PO DAILY, #30 TAB 5 Refills 09/03/15 Ergocalciferol (Vitamin D) 50,000 Unt Cap, 1 CAP PO QWEEKLY, #4 CAP 2 Refills 09/03/15 Information Source: Patient, Spouse Mode of Arrival: Wheelchair Severity: Moderate Timing: Days Duration: Since onset Prehospital treatment: None Location: Right shoulder pain Past Medical History PAST MEDICAL HISTORY: Anxiety, Asthma, DM, High Lipids, HTN, Thyroid Surgical History: Cholecystectomy, , Hysterectomy Surgical History (Other): Right shoulder surgery, right ankle surgery MICROWAVE RADIO TECHNICIAN History: No Pertinent MICROWAVE RADIO TECHNICIAN History Family History Family History: Unknown Social History Smoker: Non-Smoker Alcohol: Denies ETOH Use Drugs: Denies Drug Use Lives In: Home Constitutional: denies: chills, diaphoresis, fatigue, fever, malaise, sweats, weakness, others EENTM: denies: blurred vision, double vision, ear bleeding, ear discharge, ear drainage, ear pain, ear ringing, eye pain, eye redness, hearing loss, mouth pain, mouth swelling, nasal discharge, nose bleeding, nose congestion, nose pain, photophobia, tearing, throat pain, throat swelling, voice changes, others Respiratory: denies: cough, hemoptysis, orthopnea, SOB at rest, shortness of breath, SOB with excertion, stridor, wheezing, others Cardiovascular: denies: chest pain, dizzy spells, diaphoresis, Dyspnea on exertion, edema, irregular heart beat, left arm pain, lightheadedness, palpitations, PND, syncope, others Gastrointestinal: denies: abdomen distended, abdominal pain, blood streaked bowels, constipated, diarrhea, dysphagia, difficulty swallowing, hematemesis, melena, nausea, poor appetite, poor fluid intake, rectal bleeding, rectal pain, vomiting, others Genitourinary: denies: abnormal vagina bleeding, burning, dyspareunia, dysuria, flank pain, frequency, hematuria, incontinence, pain, , vagina discharge, urgency, others Neurological: denies: dizziness, fainting, headache, left sided numbness, left sided weakness, numbness, paresthesia, pre-existing deficit, right sided num bness, right sided weakness, seizure, speech problems, tingling, tremors, weakness, others Musculoskeletal: reports: others (Right shoulder tenderness with decreased range of motion); denies: back pain, gout, joint pain, joint swelling, muscle pain, muscle stiffness, neck pain Integumetry: denies: bruises, change in color, change in hair/nails, dryness, laceration, lesions, lumps, rash, wounds, others Allergic/Immunocompromised: denies: Difficulty Healing, Frequent Infections, Hives, Itching, others Hematologic/Lymphatic: denies: anemia, blood clots, easy bleeding, easy bruising, swollen glands, others Endocrine: denies: excessive hunger, excessive sweating, excessive thirst, excessive urination, flushing, intolerance to cold, intolerance to heat, unexpla ined weight gain, unexplained weight loss, others Psychiatric: denies: anxiety, bipolar disorder, depression, hopeless, panic disorder, schizophrenia, sleepless, suicidal, others Physical Exam General Appearance: Mild Distress HEENT: Normal ENT Inspection, Pharynx Normal, TMs Normal Neck: Full Range of Motion, Non-Tender, Normal, Normal Inspection Respiratory: Chest Non-Tender, Lungs Clear, No Accessory Muscle Use, No Respiratory Distress, Normal Breath Sounds Cardiovascular: No Edema, No JVD, No Murmur, No Gallop, Normal Peripheral Pulses, Regular Rate/Rhythm Breast Exam: Deferred Gastrointestinal: No Organomegaly, Non Tender, No Pulsatile Mass, Normal Bowel Sounds, Soft Genitalia: Deferred Pelvic: Deferred Rectal: Deferred Extremities: No calf tenderness, Normal capillary refill, No pedal edema, Tender (Right shoulder tenderness) Musculoskeletal : Location: Right Extremity Location: Shoulder Apperance: Limited ROM, Tenderness: Moderate Neurologic: Alert, occupational health nurse manager II-XII nml as Tested, No Motor Deficits, Normal Affect, Normal Mood, No Sensory Deficits Cerebellar Function: Normal Reflexes: Normal Skin: Dry, Normal Color, Warm Lymphatic: No Adenopathy Was a procedure done? Was a procedure done?: No Differential Dx Considerations may include: Fracture, strain, contusion X-Ray, Labs, Meds, VS Vital Signs Date Time Temp Pulse Resp B/P (MAP) Pulse Ox O2 Delivery O2 Flow Rate FiO2 04/17/25 17:22 98.2 69 18 109/54 96 98.2 TECHNIQUE: 3 radiographic views of the right shoulder were obtained. FINDINGS/IMPRESSION: Widened acromial humeral joint space. There appears to be some deformity of the greater tuberosity of the proximal humerus correlate for history of previous dislocation. Atelectasis right base and probable gas-filled bowel below the right diaphragm if pneumoperitoneum is of clinical concern recommend CT abdomen and pelvis. The patient is being discharged in a shoulder immobilizer There is a concern that there may be a greater tuberosity fracture The patient will follow up with the primary care doctor The patient was given [place] Images Reviewed?: Images reviewed and evaluated by me Time of 1ST Reevaluation: 19:02 Reevaluation 1ST: Improved Patient Education/Counseling: Diagnosis, Treatment, Prognosis, Need For Follow Up Family Education/Counseling: Diagnosis, Treatment, Prognosis, Need For Follow Up SEPSIS Sepsis Screen Date sepsis recognized/suspect: Apr 17, 2025 Time Sepsis recognized/suspect: 1724 Recent Procedure: No On Antibiotic Therapy: No Respiratory Rate >20: No Heart Rate >90: No Temp<36 C (96.8 F) or >38.3 C: No SBP <90 or MAP <65 mmHG: No New Acute Mental Status Change: No Is the patient on CPAP, BIPAP,: No Physician Orders R Shoulder 2+ View Xray (04/17/25 18:40) Vital Signs Date Time Temp Pulse Resp B/P (MAP) Pulse Ox O2 Delivery O2 Flow Rate FiO2 04/17/25 17:22 98.2 69 18 109/54 96 98.2 Departure 1 Departure Time of Disposition: 20:35 Impression: Primary Impression: Contusion of right shoulder Qualified Codes: S40.011A - Contusion of right shoulder, initial encounter Additional Impression: History of fall Disposition: 01 HOME / SELF CARE / HOMELESS Condition: Fair Discharged With: Self Critical Care Note Critical Care Time?: No Stability Stability form required: No Heart Score Heart Score: Heart Score Response (Comments) Value History N/A 0 EKG N/A 0 Age N/A 0 Risk Factors N/A 0 Troponin N/A 0 Total 0 I personally scribed for CAMRON WAITE MD ([email or web address]) on 04/17/25 at 19:20. Electronically submitted by Aurelio Adam ([email or web address]). CAMRON WAITE MD Apr 17, 2025 19:02
--- NOTE | 2025-04-17 19:11 | DVH ---
CLINICAL INDICATION: trauma TECHNIQUE: 3 radiographic views of the right shoulder were obtained. Comparison: XY R HAND 2 VIEW XRAY on DOS: 11/27/24 FINDINGS/IMPRESSION: Widened acromial humeral joint space. There appears to be some deformity of the greater tuberosity of the proximal humerus correlate for history of previous dislocation. Atelectasis right base and probable gas-filled bowel below the right diaphragm if pneumoperitoneum is of clinical concern recommend CT abdomen and pelvis.
[2025-04-17] MEDS: HYDROcodone-ACET 5/325MG TAB PO ONE (22:43)
[2025-04-17 22:44] VITALS: BP 119/55; PULSE 73; RESP 16; TEMP 98; O2SAT 96
== END 2025-04-17 23:45 | disposition home or self-care (01) ==
LOC: ER 17:18
DX: S40.011A Contusion of right shoulder, initial encounter (principal); F41.9 Anxiety disorder, unspecified; J45.909 Unspecified asthma, uncomplicated; I10 Essential (primary) hypertension; E78.5 Hyperlipidemia, unspecified; E11.9 Type 2 diabetes mellitus without complications; Z98.890 Other specified postprocedural states; Z90.710 Acquired absence of both cervix and uterus; Z90.49 Acquired absence of other specified parts of digestive tract; Z79.890 Hormone replacement therapy; Z79.4 Long term (current) use of insulin; Z79.899 Other long term (current) drug therapy; Z88.8 Allergy status to other drugs, medicaments and biological substances; W19.XXXA Unspecified fall, initial encounter; Y93.89 Activity, other specified; Y92.89 Other specified places as the place of occurrence of the external cause; Y99.8 Other external cause status
CPT/HCPCS: 29105; 73030

== ENCOUNTER 2025-06-23 00:29 | Emergency (ER) | payer OTHER, MEDICAID ==
[~2025-06-23] VITALS: Ht 152.4 cm; Wt 69.0 kg
[2025-06-23 00:29] VITALS: BP 113/57; PULSE 78; RESP 16; TEMP 97.9; O2SAT 98
[2025-06-23] MEDS: GABAPENTIN 300 MG CAP PO ONE (01:16)
[2025-06-23] MEDS: KETOROLAC TROMETH 60MG/2ML VIAL IM ONE (01:29)
[2025-06-23] MEDS ORDERED: HYDR-4798 PO (02:55)
--- NOTE | 2025-06-23 02:55 | ED.PDOC ---
Musculoskeletal HPI Comments This patient is a pleasant but morbidly obese 74-year-old [place]-speaking only female who arrives the ED today for evaluation of bilateral upper extremity tingling pain for the past day. Patient had a cervical fusion surgery performed one week ago. Patient states that the pain came on earlier and has been unrelenting. Vital signs were stable on arrival. Chief Complaint: Upper Extremity Time Seen by MD: 00:48 Primary Care Provider: GAYATRI ([place]) Reviewed Notes: Nurses Notes, Long Term Notes Allergies: Coded Allergies: Iodine (Verified Allergy, Unknown, rash, itching, SOB, 03/10/23) Home Meds Active Scripts Hydrocodone-Acetaminophen (Hydrocodone Bitartrate/AC 10-325 mg) 1 Tab Tab, 1 TAB PO Q8HP PRN, #10 TAB Prov:IRWIN BALLESTEROS PAC 06/23/25 Acetaminophen (Acetaminophen) 500 Mg Tab, 500 MG PO Q4HPRN, #30 TAB 0 Refills Prov:LANDY NOYOLA 11/27/24 Pantoprazole Sodium Sesquihydr (Protonix) 40 Mg Tab, 40 MG PO QAM, #30 TAB Prov:ANTHONY PEREZ MD 10/05/22 Albuterol Sulfate (VENTOLIN MDI) 90 Mcg Ih, 90 MCG IN Q4HR, #1 INH Prov:SHAYLA BILL MD 08/16/22 Reported Medications Metoprolol Succinate (Metoprolol Succinate Er) 25 Mg Tab, 25 MG PO DAILY 06/09/23 Alogliptin Benzoate (Alogliptin) 25 Mg Tab, 25 MG PO DAILY 06/09/23 Hydrochlorothiazide W/Triamter (Triamterene/Hydrochloroth) 1 Cap Cap, 1 CAP PO QAM, CAP 02/17/23 Citalopram Hydrobromide (Citalopram Hydrobromide) 40 Mg Tab, 40 MG PO DAILY for 30 Days, MG 02/17/23 Duloxetine Hcl (Cymbalta) 20 Mg Cap, 60 MG PO BID, CAP 08/15/22 Insulin Glargine (Lantus Solostar) Solostar Inj, 30 UNIT SUBCUT DAILY, #15 ML 3 Refills 09/03/15 Levothyroxine Sodium (Levothyroxine Sodium) 150 Mcg Tab, 1 TAB PO DAILY, #30 TAB 5 Refills 09/03/15 Ergocalciferol (Vitamin D) 50,000 Unt Cap, 1 CAP PO QWEEKLY, #4 CAP 2 Refills 09/03/15 Information Source: Patient, Emergency Med Personnel Mode of Arrival: Ambulatory Timing: Hours Prehospital treatment: None Severity: Moderate Able to Move Extremity: Yes Bear Weight: Fully Pain: Moderate Hand Dominance: Right Mechanism: Spontaneous Circumstances: Other (Status post cervical spine fusion) Past Medical History PAST MEDICAL HISTORY: Anxiety, Asthma, DM, High Lipids, HTN, Thyroid Surgical History: Cholecystectomy, , Hysterectomy Surgical History (Other): Recent cervical spine fusion procedure AGENCY SERVICE COORDINATOR History: No Pertinent AGENCY SERVICE COORDINATOR History Family History Family History: Unknown Social History Smoker: Non-Smoker Alcohol: Denies ETOH Use Drugs: Denies Drug Use Lives In: Home Constitutional: denies: chills, diaphoresis, fatigue, fever, malaise, sweats, weakness, others EENTM: denies: blurred vision, double vision, ear bleeding, ear discharge, ear drainage, ear pain, ear ringing, eye pain, eye redness, hearing loss, mouth pain, mouth swelling, nasal discharge, nose bleeding, nose congestion, nose pain, photophobia, tearing, throat pain, throat swelling, voice changes, others Respiratory: denies: cough, hemoptysis, orthopnea, SOB at rest, shortness of breath, SOB with excertion, stridor, wheezing, others Cardiovascular: denies: chest pain, dizzy spells, diaphoresis, Dyspnea on exertion, edema, irregular heart beat, left arm pain, lightheadedness, palpitations, PND, syncope, others Gastrointestinal: denies: abdomen distended, abdominal pain, blood streaked bowels, constipated, diarrhea, dysphagia, difficulty swallowing, hematemesis, melena, nausea, poor appetite, poor fluid intake, rectal bleeding, rectal pain, vomiting, others Genitourinary: denies: abnormal vagina bleeding, burning, dyspareunia, dysuria, flank pain, frequency, hematuria, incontinence, pain, , vagina discharge, urgency, others Neurological: denies: dizziness, fainting, headache, left sided numbness, left sided weakness, numbness, paresthesia, pre-existing deficit, right sided numbness, right sided weakness, seizure, speech problems, tingling, tremors, weakness, others Musculoskeletal: reports: others (Bilateral upper extremity tingling, pinprick aching and pain.); denies: back pain, gout, joint pain, joint swelling, muscle pain, muscle stiffness, neck pain Integumetry: denies: bruises, change in color, change in hair/nails, dryness, laceration, lesions, lumps, rash, wounds, others Allergic/Immunocompromised: denies: Difficulty Healing, Frequent Infections, Hives, Itching, others Hematologic/Lymphatic: denies: anemia, blood clots, easy bleeding, easy bruising, swollen glands, others Endocrine: denies: excessive hunger, excessive sweating, excessive thirst, excessive urination, flushing, intolerance to cold, intolerance to heat, unexplained weight gain, unexplained weight loss, others Psychiatric: denies: anxiety, bipolar disorder, depression, hopeless, panic disorder, schizophrenia, sleepless, suicidal, others Physical Exam General Appearance: Moderate Distress (Moderate distress due to bilateral upper extremity concerns.), Normal HEENT: Normal ENT Inspection, Pharynx Normal, TMs Normal Neck: Other (Patient was in a hard C-collar at time of evaluation. Patient was told by her surgeon do keep the C-collar on until re-evaluation.) Respiratory: Chest Non-Tender, Lungs Clear, No Accessory Muscle Use, No Respiratory Distress, Normal Breath Sounds Cardiovascular: No Edema, No JVD, No Murmur, No Gallop, Normal Peripheral Pulses, Regular Rate/Rhythm Breast Exam: Deferred Gastrointestinal: No Organomegaly, Non Tender, No Pulsatile Mass, Normal Bowel Sounds, Soft Genitalia: Deferred Pelvic: Deferred Rectal: Deferred Extremities: Other (Unremarkable bilateral upper extremities. No signs of trauma. Strength is 5+ over 5+ bilaterally.) Musculoskeletal : Location: Bilateral Extremity Location: Other (Patient is a hard C-collar at time of evaluation.) Apperance: Normal Neurologic: Alert Cerebellar Function: NOT DONE Reflexes: NOT DONE Skin: Dry, Normal Color, Warm Lymphatic: No Adenopathy Was a procedure done? Was a procedure done?: No Differential Diagnosis EXT Differential Diagnosis: Other (Was stopped. Pain, postoperative complication, cage fusion failure) X-Ray, Labs, Meds, VS Vital Signs Date Time Temp Pulse Resp B/P (MAP) Pulse Ox O2 Delivery O2 Flow Rate FiO2 06/23/25 00:29 97.9 78 16 113/57 98 97.9 Current Medications Medications (Trade) Dose Ordered Sig/Antoine Route Start Time Stop Time Status Last Admin Gabapentin (Neurontin Capsule) 600 mg ONCE ONCE PO 06/23/25 01:00 06/23/25 01:01 DC 06/23/25 01:16 Ketorolac Tromethamine (Toradol Injection) 15 mg ONCE ONCE IM 06/23/25 01:30 06/23/25 01:31 DC 06/23/25 01:29 X-Ray, Labs, Meds, VS Comment Imaging studies were pending at time of this note. Patient care will be transferred to Dr. Lama for evaluation of imaging studies when returned. Yeyo checked x3 no answer checked outside 10 no answer. Per yeyo nurse's patient eloped was seen leaving taking her C-collar off patient did not have x- ray done per radiology. Time of 1ST Reevaluation: 02:53 Reevaluation 1ST: Improved Time of 2ND Reevaluation: 04:03 Reevaluation 2ND: PATIENT ELOPED Consultation: PCP, Other (Cervical spine surgeon) Patient Education/Counseling: Diagnosis, Treatment Family Education/Counseling: Diagnosis, Treatment Sepsis Recent Procedure: No On Antibiotic Therapy: No Respiratory Rate >20: No Heart Rate >90: No Temp<36 C (96.8 F) or >38.3 C: No SBP <90 or MAP <65 mmHG: No New Acute Mental Status Change: No Is the patient on CPAP, BIPAP,: No IV fluid given: No Departure 1 Departure Time of Disposition: 02:53 Impression: Primary Impression: Postoperative pain Additional Impression: Cervical radiculopathy Disposition: 07 LEFT AWOL/ELOPED Condition: Stable Additional Instructions: Advised patient utilize pain medication as needed. Patient needs to follow up with the primary care provider and surgeon for re-evaluation of postoperative pain concerns. e-Prescriptions Hydrocodone-Acetaminophen (Hydrocodone Bitartrate/AC 10-325 mg) 1 Tab Tab 1 TAB PO Q8HP PRN, #10 TAB Prov: IRWIN BALLESTEROS PAC 06/23/25 Discharged With: Self, Friend Critical Care Note Critical Care Time?: No Stability Stability form required: No Heart Score Heart Score: Heart Score Response (Comments) Value History N/A 0 EKG N/A 0 Age N/A 0 Risk Factors N/A 0 Troponin N/A 0 Total 0 IRWIN BALLESTEROS PAC Jun 23, 2025 02:55 NELSON DAVIS Jun 23, 2025 04:04
== END 2025-06-23 04:03 | disposition left against medical advice (07) ==
LOC: EDUNIT# 00:29 → ER 00:29 → EDBD 00:29 → ER 04:03
DX: M54.12 Radiculopathy, cervical region (principal); F41.9 Anxiety disorder, unspecified; I10 Essential (primary) hypertension; J45.909 Unspecified asthma, uncomplicated; E11.9 Type 2 diabetes mellitus without complications; E78.5 Hyperlipidemia, unspecified; G89.18 Other acute postprocedural pain; E66.01 Morbid (severe) obesity due to excess calories; Z79.899 Other long term (current) drug therapy; Z79.890 Hormone replacement therapy; Z79.4 Long term (current) use of insulin; Z88.8 Allergy status to other drugs, medicaments and biological substances; Z90.49 Acquired absence of other specified parts of digestive tract; Z90.710 Acquired absence of both cervix and uterus; Z98.1 Arthrodesis status; Z68.29 Body mass index [BMI] 29.0-29.9, adult
CPT/HCPCS: 96372; 99283; J1885